=== PATIENT | male | born 1945 | race Caucasian/White ===

== ENCOUNTER 2019-01-07 04:27 | Emergency (ER) | payer MEDICARE, BC, SELFPAY ==
[2019-01-07 04:31] VITALS: BP 167/85; PULSE 57; RESP 16; TEMP 36.3; O2SAT 97
--- NOTE | 2019-01-07 04:47 | W.ED.GENAD ---
Discharge Plan Disposition Patient Disposition: HOME Condition: Stable Discharge Details Chief Complaint: Orthopedic Clinical Impression: Muscle spasm Primary Care Provider: Lynda Ventura ED Provider: Mason Singleton Home Meds and New Rx's Prescriptions: New cyclobenzaprine 10 mg tablet 10 mg PO TID PRN (Reason: muscle spasm) Qty: 30 RF: 0 No Action pramipexole 0.125 mg tablet See Rx Instructions PO as directed MDD 8 Qty: 720 RF: 4 Discharge Instructions Instructions: Muscle Spasm (ED) Additional Instructions: You can take 1000mg tylenol and 600mg ibuprofen every 6 hours for pain as needed follow up with your primary care provider within a week especially if the pain continues return to the emergency department for fevers, if you develop a red rash or feel the pain is significantly worsening Medical Decision Making 73 yo male comes in with cc of right thigh pain. He states the pain is located over the mid right thigh in the lateral portion of the thigh. He denies any recent trauma or falls. No fevers or rashes. He did cross country ski recently mud denies falling. On exam he is ambulating and has full rom of the hip and knee and intact distal sensation and pulses. No rashes, crepitus, warmth, redness to suggest nec fasc or cellulitis or abscess. He has pain in the lateral mid thigh of the right leg and does feel like he is having a muscle spasm. Given full rom and no trauma and walking without difficulty doubt fx so do not feel xrays indicated. Will start muscle relaxers, advised f/u with pcp and return precautions given Differential Diagnosis strain, muscle spasm, contusion HPI General Mode of arrival: ambulatory. Date/Time Provider Initiated Documentation: 01/07/19 04:45. Limitations to Documentation: no limitations. Information obtained by: patient. History of Present Illness 73 year old M presents to the emergency department with the chief complaint of right thigh pain, described as moderate, with intensity rated at 6. Quality is described as aching, and is localized to the right and lower extremity. Patient reports no radiation. Patient started experiencing this day(s) (1) and it has been constant. No relieving factors improve symptom(s), No exacerbating factors reported . Patient notes no other symptoms.. Patient did receive the following treatments prior to arrival, none Related Data Home Medications Medication Instructions Recorded Confirmed pramipexole 0.125 mg tablet See Rx Instructions PO as directed 10/27/18 01/07/19 #720 tab-cap MDD 8 cyclobenzaprine 10 mg PO TID PRN #30 tab 01/07/19 Previous Rx's Medication Instructions Recorded pramipexole 0.125 mg tablet See Rx Instructions PO as directed 10/27/18 #720 tab-cap MDD 8 cyclobenzaprine 10 mg PO TID PRN #30 tab 01/07/19 Allergies Allergy/AdvReac Type Severity Reaction Status Date / Time No Known Allergies Allergy Unverified 01/07/19 04:40 General Stated Complaint: Orthopedic JACQUELINE: 3 Review of Systems Review of Systems All systems reviewed & are unremarkable except as noted in HPI and below Constitutional Denies chills, Denies fever(s) and Denies weakness ENT Denies change in voice Cardiovascular Denies chest pain and Denies dyspnea Respiratory Denies cough and Denies dyspnea Gastrointestinal Denies abdominal pain, Denies nausea and Denies vomiting Musculoskeletal Denies joint swelling Neurologic Denies weakness [facility] Medical History Anxiety (Chronic 01/25/13) Balance disorder (Chronic 02/10/18) BPH without urinary obstruction (Chronic 04/12/09) Dupuytren's disease (Chronic 07/28/15) Hyperlipidemia (Chronic 01/08/00) Low back pain, non-specific (Chronic) Male erectile disorder (Chronic) 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 Father Heart disease Brother Hyperlipidemia Grandfather Heart disease Grandfather Heart disease Grandmother No problems noted. Grandmother Heart disease Sister Personal history of malignant neoplasm Parkinson disease Sister Personal history of malignant neoplasm Sister Personal history of malignant neoplasm Sister No problems noted. Sister No problems noted. Brother No problems noted. Brother No problems noted. Brother No problems noted. Brother Hyperlipidemia Social History Smoking and Tabacco status: Never Exam Const General: no acute distress Orientation: alert HENMT Head: normal to inspection Ears: external ears normal General nose exam: external nose normal Mouth: moist mucous membranes Eyes General: appearance normal, both eyes and all related structures Neck Neck: normal visual inspection Resp Effort & Inspection: normal respiratory effort and able to speak in complete sentences Cardio Rate: regular rate Skin General skin exam: no rashes or lesions noted Neuro General: alert and oriented x3 Extrem General: normal to inspection Psych Mental Status: mental status grossly normal Course Vital Signs Temperature 36.3 C L 01/07/19 04:31 Pulse 57 L 01/07/19 04:31 Respiratory Rate 16 01/07/19 04:31 Blood Pressure 167/85 H 01/07/19 04:31 Pulse Oximetry 97 01/07/19 04:31 Temperature 36.3 C L 01/07/19 04:31 Temperature Source Skin 01/07/19 04:31 Pulse 57 L 01/07/19 04:31 Respiratory Rate 16 01/07/19 04:31 Blood Pressure 167/85 H 01/07/19 04:31 Blood Pressure Position Sitting 01/07/19 04:31 Pulse Oximetry 97 01/07/19 04:31 Oxygen Delivery Method Room Air 01/07/19 04:31 Oxygen Flow Rate 0 01/07/19 04:31 Pain Level 8 01/07/19 04:31
--- NOTE | 2019-01-07 04:57 | ED.GENADUL_ITS ---
Discharge Plan Disposition Patient Disposition: HOME Condition: Stable Discharge Details Chief Complaint: Orthopedic Clinical Impression: Muscle spasm Primary Care Provider: Lynda Ventura ED Provider: Mason Singleton Home Meds and New Rx's Prescriptions: New cyclobenzaprine 10 mg tablet 10 mg PO TID PRN (Reason: muscle spasm) Qty: 30 RF: 0 No Action pramipexole 0.125 mg tablet See Rx Instructions PO as directed MDD 8 Qty: 720 RF: 4 Discharge Instructions Instructions: Muscle Spasm (ED) Additional Instructions: You can take 1000mg tylenol and 600mg ibuprofen every 6 hours for pain as needed follow up with your primary care provider within a week especially if the pain continues return to the emergency department for fevers, if you develop a red rash or feel the pain is significantly worsening Medical Decision Making 73 yo male comes in with cc of right thigh pain. He states the pain is located over the mid right thigh in the lateral portion of the thigh. He denies any recent trauma or falls. No fevers or rashes. He did cross country ski recently mud denies falling. On exam he is ambulating and has full rom of the hip and knee and intact distal sensation and pulses. No rashes, crepitus, warmth, redness to suggest nec fasc or cellulitis or abscess. He has pain in the lateral mid thigh of the right leg and does feel like he is having a muscle spasm. Given full rom and no trauma and walking without difficulty doubt fx so do not feel xrays indicated. Will start muscle relaxers, advised f/u with pcp and return precautions given Differential Diagnosis strain, muscle spasm, contusion HPI General Mode of arrival: ambulatory . Date/Time Provider Initiated Documentation: 01/07/19 04:45 . Limitations to Documentation: no limitations . Information obtained by: patient . History of Present Illness 73 year old M presents to the emergency department with the chief complaint of right thigh pain, described as moderate, with intensity rated at 6. Quality is described as aching, and is localized to the right and lower extremity. Patient reports no radiation. Patient started experiencing this day(s) (1) and it has been constant. No relieving factors improve symptom(s), No exacerbating factors reported . Patient notes no other symptoms.. Patient did receive the following treatments prior to arrival, none Related Data Home Medications Medication Instructions Recorded Confirmed pramipexole 0.125 mg tablet See Rx Instructions PO as directed 10/27/18 01/07/19 #720 tab-cap MDD 8 cyclobenzaprine 10 mg PO TID PRN #30 tab 01/07/19 Previous Rx's Medication Instructions Recorded pramipexole 0.125 mg tablet See Rx Instructions PO as directed 10/27/18 #720 tab-cap MDD 8 cyclobenzaprine 10 mg PO TID PRN #30 tab 01/07/19 Allergies Allergy/AdvReac Type Severity Reaction Status Date / Time No Known Allergies Allergy Unverified 01/07/19 04:40 General Stated Complaint: Orthopedic JACQUELINE: 3 Review of Systems Review of Systems All systems reviewed & are unremarkable except as noted in HPI and below Constitutional Denies chills, Denies fever(s) and Denies weakness ENT Denies change in voice Cardiovascular Denies chest pain and Denies dyspnea Respiratory Denies cough and Denies dyspnea Gastrointestinal Denies abdominal pain, Denies nausea and Denies vomiting Musculoskeletal Denies joint swelling Neurologic Denies weakness [facility] Medical History Anxiety (Chronic 01/25/13) Balance disorder (Chronic 02/10/18) BPH without urinary obstruction (Chronic 04/12/09) Dupuytren's disease (Chronic 07/28/15) Hyperlipidemia (Chronic 01/08/00) Low back pain, non-specific (Chronic) Male erectile disorder (Chronic) 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 Father Heart disease Brother Hyperlipidemia Grandfather Heart disease Grandfather Heart disease Grandmother No problems noted. Grandmother Heart disease Sister Personal history of malignant neoplasm Parkinson disease Sister Personal history of malignant neoplasm Sister Personal history of malignant neoplasm Sister No problems noted. Sister No problems noted. Brother No problems noted. Brother No problems noted. Brother No problems noted. Brother Hyperlipidemia Social History Smoking and Tabacco status: Never Exam Const General: no acute distress Orientation: alert HENMT Head: normal to inspection Ears: external ears normal General nose exam: external nose normal Mouth: moist mucous membranes Eyes General: appearance normal, both eyes and all related structures Neck Neck: normal visual inspection Resp Effort & Inspection: normal respiratory effort and able to speak in complete sentences Cardio Rate: regular rate Skin General skin exam: no rashes or lesions noted Neuro General: alert and oriented x3 Extrem General: normal to inspection Psych Mental Status: mental status grossly normal Course Vital Signs Temperature 36.3 C L 01/07/19 04:31 Pulse 57 L 01/07/19 04:31 Respiratory Rate 16 01/07/19 04:31 Blood Pressure 167/85 H 01/07/19 04:31 Pulse Oximetry 97 01/07/19 04:31 Temperature 36.3 C L 01/07/19 04:31 Temperature Source Skin 01/07/19 04:31 Pulse 57 L 01/07/19 04:31 Respiratory Rate 16 01/07/19 04:31 Blood Pressure 167/85 H 01/07/19 04:31 Blood Pressure Position Sitting 01/07/19 04:31 Pulse Oximetry 97 01/07/19 04:31 Oxygen Delivery Method Room Air 01/07/19 04:31 Oxygen Flow Rate 0 01/07/19 04:31 Pain Level 8 01/07/19 04:31
[2019-01-07] MEDS: Cyclobenzaprine 10 MG TAB PO (04:58)
== END 2019-01-07 05:00 | disposition home or self-care (01) ==
PROVIDERS: Emergency Provider Emergency Medicine; PCP Family Medicine
DX: M62.838 Other muscle spasm (principal); X50.3XXA Overexertion from repetitive movements, initial encounter
CPT/HCPCS: 99283

== ENCOUNTER 2019-01-20 09:35 | Outpatient (CLI) | payer MEDICARE, BC, SELFPAY ==
--- NOTE | 2019-01-20 09:40 | DI.RAD_ITS ---
SYMPTOM/DIAGNOSIS: RT HIP PAIN, M25.551 RIGHT HIP AND PELVIS: There are mild degenerative changes involving the right hip. The bony structures are normally mineralized. There is no evidence of a fracture or dislocation. Evaluation of the pelvis reveals osteitis pubis. Allowing for overlying bowel gas and fecal material, no localized bony abnormality is apparent. 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
== END 2019-01-20 09:55 ==
PROVIDERS: PCP Family Medicine; Visit Provider Emergency Medicine
DX: M25.551 Pain in right hip (principal); M16.11 Unilateral primary osteoarthritis, right hip
CPT/HCPCS: 73502

== ENCOUNTER 2019-08-23 00:58 | Outpatient (CLI) | payer MEDICARE, BC, SELFPAY ==
[2019-08-23 14:39] LABS: CREATININE 0.87 mg/dL (0.70-1.30)
[2019-08-23] MEDS: Normal Saline Flush 10 ML SYR IVP (15:29)
[2019-08-23] MEDS: Gadoterate meglumine 20 ML VIAL 16 ML IVP (15:30)
--- NOTE | 2019-08-23 17:05 | DI.MRI_ITS ---
EXAM: MR UPPER EXTREMITY LT WO/W CLINICAL HISTORY: Osteomyelitis, M86.9, ? osteomyelitis of 5th left finger. TECHNIQUE: Multiplanar multisequence MRI was performed. COMPARISON: No exams were available for comparison FINDINGS: Examination of the hand was performed according to the usual protocol with additional pre and post co ntrast T1 fat sat imaging. There is reportedly a question of osteomyelitis of the 5th finger. The e xamination is very limited technically. Question increased signal in proximal and middle phalanges o f the little finger, bony cortex of the head of the proximal and middle phalanges is not well visuali zed but this may be due to artifact. Correlation with radiographs or CT requested to evaluate the po ssibility of a destructive process. IMPRESSION:
== END 2019-08-23 01:18 ==
PROVIDERS: PCP Family Medicine; Visit Provider Family Medicine
DX: L08.89 Other specified local infections of the skin and subcutaneous tissue (principal); M86.141 Other acute osteomyelitis, right hand
CPT/HCPCS: 73220; 82565

== ENCOUNTER 2019-08-26 10:35 | Outpatient (CLI) | payer MEDICARE, BC, SELFPAY ==
[2019-08-26 10:01] LABS: Absolute Basophil Count 0.02 k/cumm (0.0-0.2); Absolute Eosinophil Count 0.11 k/cumm (0.0-0.7); Absolute Lymphocyte Count 1.09 k/cumm (1.2-3.4); Absolute Monocyte Count 0.45 k/cumm (0.11-0.7); Absolute Neutrophil Count 2.35 k/cumm (1.2-6.7); Basophils % 0.5; Eosinophils % 2.7; HCT 44.4 % (40.0-50.0); HGB 14.8 g/dL (13.5-17.5); Lymphocytes % 27.1; Mean Corp. HGB Concentration 33.3 g/dL (32.0-36.0); Mean Corpuscular Hemoglobin 29.8 pg (27.0-33.0); Mean Corpuscular Volume 89.5 fL (80-95); Mean Platelet Volume 9.8 fL (8.0-11.0); Monocytes % 11.2; Neutrophils % 58.5; Platelet Count 210 x1000/uL (130-400); RBC 4.96 m/cumm (4.50-6.00); RBC Distribution Width 13.8 % (11.8-14.1); White Blood Cell Count 4.02 k/cumm (4.4-10.8)
[2019-08-26 10:37] LABS: C-Reactive Protein 0.12 mg/dL (0.0-0.3)
[2019-08-26 11:18] LABS: ESR 9 mm/hr (1-20)
== END 2019-08-26 10:55 ==
PROVIDERS: PCP Family Medicine; Visit Provider Family Medicine
DX: L03.012 Cellulitis of left finger (principal)
CPT/HCPCS: 36415; 85652; 85025; 86140

== ENCOUNTER 2020-04-10 09:05 | Inpatient (IN) | payer MEDICARE, BC, SELFPAY ==
[2020-04-10] VITALS (21 sets, daily range): BP systolic 135–166; BP diastolic 72–92; PULSE 42–67; RESP 11–20; TEMP 36.3–37.5; O2SAT 96–100
--- NOTE | 2020-04-10 09:07 | W.ED.GENAD ---
Discharge Plan Discharge Details Chief Complaint: GenMedical Admit Date/Time: 04/10/20 12:24 Admit Provider: Wood Sanford Attending Provider: Wood Sanford Primary Care Provider: Lynda Ventura ED Provider: Angela Saleh Medical Decision Making Nitin Butt is a 74-year-old man with history of parkinsonian disease, hyperlipidemia, restless leg syndrome who presents emergency department with intermittent severe generalized weakness new over the past few days; patient also with new sharp chest pain with exertion over the past few days. On exam patient is well and nontoxic-appearing. Nonfocal neurologic exam, able to walk unassisted. Concern for sequelae of Parkinson's disease versus metabolic/lyte derangement versus infection versus other, possible ACS. Doubt pulmonary embolism. Exam/history is not consistent with sepsis, acute aortic process, meningitis. Plan for EKG, screening labs, CT head, chest x-ray, telemetry. Will monitor and reassess. I did discuss patient presentation with Dr. Rodriguez of neurology, who recommended no further imaging or acute diagnostics at this time. Labs reviewed, nondiagnostic. CT had negative per radiology. EKG nondiagnostic. Given new severe weakness, plan for admission for further evaluation. Patient and his are amenable to the plan. Patient's does note that he has been having significant tremor at night while asleep, and a sleep study had been scheduled in the past but has not been performed. She asked that patient be observed intermittently while sleeping while sleeping. Clinical impression: Intermittent generalized weakness Disposition: [facility] inpatient Medical Records Medical records reviewed: Yes I reviewed the patient's medical records. Imaging Data Radiologic Study: Attestation: I personally reviewed and interpreted this imaging study as follows: Radiologist's impression: EXAM: CT HEAD WO CLINICAL HISTORY: generalized weakness, severe TECHNIQUE: COMPARISON: No exams were available for comparison FINDINGS: Noncontrast cranial CT was performed. There is mild generalized cerebral atrophy. Minimal patchy areas of decreased attenuation in periventricular white matter are noted consistent with microvascular ischemic changes. There is no evidence of acute intracranial hemorrhage, mass effect, or midline shift. IMPRESSION: No evidence of acute intracranial process. EXAM: XR CHEST 2V PA LATERAL CLINICAL HISTORY: chest pain TECHNIQUE: 2D digital imaging was performed. COMPARISON: No exams were available for comparison FINDINGS: The heart is not enlarged. The lungs are clear and well expanded. No pleural effusion seen. Mediastinal contours appear intact. IMPRESSION: Normal chest Lab Data Lab results reviewed: Yes I reviewed the patient's lab results. Labs: Laboratory Tests Range/Units 04/10/20 04/10/20 04/10/20 10:00 10:15 10:15 WBC (4.4-10.8) k/cumm 4.22 L RBC (4.50-6.00) m/cumm 5.23 Hgb (13.5-17.5) g/dL 15.4 Hct (40.0-50.0) % 46.1 MCV (80-95) fL 88.1 MCH (27.0-33.0) pg 29.4 MCHC (32.0-36.0) g/dL 33.4 RDW (11.8-14.1) % 13.5 Plt Count (130-400) x1000/uL 219 MPV (8.0-11.0) fL 9.5 Immature Gran % % 0.2 Neutrophils % 63.5 Lymphocytes % 23.0 Monocytes % 9.7 Eosinophils % 3.1 Basophils % 0.5 Absolute Neutrophils (1.2-6.7) k/cumm 2.68 Absolute Lymphocytes (1.2-3.4) k/cumm 0.97 L Absolute Monocytes (0.11-0.7) k/cumm 0.41 Absolute Eosinophils (0.0-0.7) k/cumm 0.13 Absolute Basophils (0.0-0.2) k/cumm 0.02 D-Dimer (<500) ng/mlFEU Sodium (136-145) mmol/L 139 Potassium (3.5-5.1) mmol/L 3.8 Chloride (98-107) mmol/L 104 Carbon Dioxide (21.0-32.0) mmol/L 28.5 Anion Gap (3-11) mmol/L 6.5 BUN (7-18) mg/dL 17 Creatinine (0.70-1.30) mg/dL 0.84 Estimated GFR/1.73 m2 (mL/min/1.73m2) >= 60.00 Glucose (74-106) mg/dL 133 H Lactate (0.6-1.4) mmol/L Calcium (8.5-10.1) mg/dL 9.0 Total Bilirubin (0.2-1.0) mg/dL 0.3 AST (15-37) U/L 16 ALT (16-63) U/L 33 Alkaline Phosphatase (46-116) U/L 72 Troponin I (<0.06) ng/mL Total Protein (6.4-8.2) g/dL 7.8 Albumin (3.4-5.0) g/dL 4.0 Vitamin B12 (193-986) pg/mL 339 TSH (0.36-3.74) uIU/mL 1.00 Urine Color (Yellow) Yellow Urine Clarity (Clear) Clear Urine pH (5-8) 7.0 Ur Specific [place] (1.005-1.025) 1.020 Urine Protein (Negative) mg/dL Negative Urine Ketones (Negative) mg/dL Negative Urine Blood (Negative) Negative Urine Nitrite (Negative) Negative Urine Bilirubin (Negative) Negative Urine Urobilinogen (Up TO 0.2) EU/dL 0.2 Ur Leukocyte Esterase (Negative) Negative Urine Glucose (Negative) mg/dL Negative Range/Units 04/10/20 04/10/20 04/10/20 10:15 10:15 13:10 WBC (4.4-10.8) k/cumm RBC (4.50-6.00) m/cumm Hgb (13.5-17.5) g/dL Hct (40.0-50.0) % MCV (80-95) fL MCH (27.0-33.0) pg MCHC (32.0-36.0) g/dL RDW (11.8-14.1) % Plt Count (130-400) x1000/uL MPV (8.0-11.0) fL Immature Gran % % Neutrophils % Lymphocytes % Monocytes % Eosinophils % Basophils % Absolute Neutrophils (1.2-6.7) k/cumm Absolute Lymphocytes (1.2-3.4) k/cumm Absolute Monocytes (0.11-0.7) k/cumm Absolute Eosinophils (0.0-0.7) k/cumm Absolute Basophils (0.0-0.2) k/cumm D-Dimer (<500) ng/mlFEU 369 Sodium (136-145) mmol/L Potassium (3.5-5.1) mmol/L Chloride (98-107) mmol/L Carbon Dioxide (21.0-32.0) mmol/L Anion Gap (3-11) mmol/L BUN (7-18) mg/dL Creatinine (0.70-1.30) mg/dL Estimated GFR/1.73 m2 (mL/min/1.73m2) Glucose (74-106) mg/dL Lactate (0.6-1.4) mmol/L 0.6 Calcium (8.5-10.1) mg/dL Total Bilirubin (0.2-1.0) mg/dL AST (15-37) U/L ALT (16-63) U/L Alkaline Phosphatase (46-116) U/L Troponin I (<0.06) ng/mL < 0.05 Total Protein (6.4-8.2) g/dL Albumin (3.4-5.0) g/dL Vitamin B12 (193-986) pg/mL TSH (0.36-3.74) uIU/mL Urine Color (Yellow) Urine Clarity (Clear) Urine pH (5-8) Ur Specific [place] (1.005-1.025) Urine Protein (Negative) mg/dL Urine Ketones (Negative) mg/dL Urine Blood (Negative) Urine Nitrite (Negative) Urine Bilirubin (Negative) Urine Urobilinogen (Up TO 0.2) EU/dL Ur Leukocyte Esterase (Negative) Urine Glucose (Negative) mg/dL ECG Data Attestation: I personally reviewed and interpreted this ECG (s) as follows: Interpretation: EKG shows sinus bradycardia at 52, normal axis, no STEMI, nondiagnostic EKG Reviewed EKG shows sinus bradycardia at 51 with normal axis, no STEMI, no major change from prior, nondiagnostic EKG HPI General Mode of arrival: ambulatory. Date/Time Provider Initiated Documentation: 04/10/20 09:07. Limitations to Documentation: no limitations. Information obtained by: patient, family, RN/MD, RN notes reviewed and old records reviewed. HPI Narrative: Nitin Butt is a 74-year-old man with history of parkinsonian disease, hyperlipidemia, restless leg with weakness and chest pain. Patient is accompanied by his who also provides a history. I was also contacted by Dr. Hickman who knows the patient personally, and by Dr. Ventura who is the patient's PCP. Patient was diagnosed with parkinsonian disease approximately 3 years ago, parkinsonian in that his course has been atypical without tremor. Per report and record review, patient was seen here in the past by Dr. Rodriguez and is currently followed by neurology at [facility] [place]. To date patient has not been interested in medications for his Parkinson's disease and currently does not take any. Patient and his report that over the past few months patient has felt weaker in general, however there has been an acute change in the past 5 days or so. They report that patient has had significant generalized weakness at times, to the point where he is unable to get out of a chair or get out of bed. Patient reports that last night he was unable to get out of bed which has never happened to him before. Patient reports that his speech/voice also seems weak during these times. Patient reports that the weakness has seemed somewhat worse for the end of the day, but this has not been consistent. Patient reports in the past few days he has also noticed chest pain with exertion. 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 He reports that this is relieved by rest. Patient reports that he has had no chest pain while at rest. He reports some mild shortness of breath that has not bothered him during the past few days as well. He denies any other pain or any other recent illness. He denies fevers, cough, vomiting, diarrhea, rash, focal weakness, numbness, vision changes, eyelid drooping, trouble swallowing. Patient reports that he has been eating and drinking as usual. He states that he drinks 1 beer a day on some days. Denies tobacco use, denies recreational drug use. Related Data Home Medications Medication Instructions Recorded Confirmed cyclobenzaprine 10 mg PO TID PRN #30 tab 01/07/19 04/10/20 adjuvant AS01B (PF)vial 1 of 2 1 ml IM ONCE #0.5 ml 04/20/19 10/19/19 lorazepam 1 mg tablet 1 mg PO DAILY PRN #2 tab 08/11/19 04/10/20 pramipexole 0.125 mg tablet See Rx Instructions PO as directed 11/15/19 04/10/20 #630 tab-cap Previous Rx's Medication Instructions Recorded cyclobenzaprine 10 mg PO TID PRN #30 tab 01/07/19 adjuvant AS01B (PF)vial 1 of 2 1 ml IM ONCE #0.5 ml 04/20/19 lorazepam 1 mg tablet 1 mg PO DAILY PRN #2 tab 08/11/19 pramipexole 0.125 mg tablet See Rx Instructions PO as directed 11/15/19 #630 tab-cap Allergies Allergy/AdvReac Type Severity Reaction Status Date / Time No Known Allergies Allergy Unverified 04/10/20 09:17 General JACQUELINE: 3 Review of Systems Narrative: Constitutional: denies fevers Eyes: denies eye pain, eyelid drooping, vision changes ENT: denies ear pain, dental pain, sore throat Cardiovascular: denies edema, reports shortness of breath with exertion Respiratory: denies cough, reports mild shortness of breath GI: denies abdominal pain, vomiting, diarrhea : denies flank pain MSK: denies back pain, neck pain, arthralgias, myalgias Skin: denies rash Neuro: denies headaches, numbness, focal weakness, reports intermittent generalized weakness [facility] Medical History Anxiety (Chronic 01/25/13) 12/26/17 TERESITA-7 SCORE=13 Balance disorder (Chronic 02/10/18) BPH without urinary obstruction (Chronic 04/12/09) Dupuytren's disease (Chronic 07/28/15) Hyperlipidemia (Chronic 01/08/00) Low back pain, non-specific (Chronic) S/P BACK SURGERY 1997 Male erectile disorder (Chronic) Metatarsalgia of left foot (Chronic 07/28/15) Panic attack (Chronic 01/25/13) Partial rupture of Achilles tendon (Chronic 07/15/17) Pterygium (Chronic 04/12/09) REMOVED W/ BILATERAL EYE SURGERY Restless legs (Chronic 04/12/09) Sensorineural hearing loss, bilateral (Chronic 12/14/15) Sleep disturbance (Chronic 03/12/18) Trigger finger, left middle finger (Chronic 07/28/15) Social History Smoking/Tobacco Use Status: Never Alcohol Intake: current Alcohol Intake frequency: 3 or more drinks per day Alcohol type: beer Drug use: Never Substance use type: does not use Do you feel safe at home: Yes Do you feel safe in your relationship?: Yes Exam Narrative Exam Narrative: Constitutional: well and [id number], pleasant, conversing normally HENT: head atraumatic/normocephalic/normal inspection, mucous membranes moist Eyes: conjunctiva normal, sclera normal, pupils 3mm b/l ERRL, extraocular movements intact without nystagmus Neck: no stridor, normal ROM, trachea midline Chest: normal inspection Resp: normal work of breathing Cardio: normal rate, normal rhythm Back: normal inspection, no rash Skin: warm, dry, normal color, no rash Neuro: alert, not altered, cranial nerves II through XII intact, motor 5 out of 5 throughout, [id number] normal bilaterally, [id number] normal bilaterally, no pronator drift, negative Romberg sign, patient with somewhat shuffling gait but able to walk without assistance, mild difficulty with tandem gait, normal tone Ext: no edema Psych: normal mood, normal affect, normal behavior
[2020-04-10 10:36] LABS: Abs Immature Grans 0.01 k/cumm (0.0-0.09); Absolute Basophil Count 0.02 k/cumm (0.0-0.2); Absolute Eosinophil Count 0.13 k/cumm (0.0-0.7); Absolute Lymphocyte Count 0.97 k/cumm (1.2-3.4); Absolute Monocyte Count 0.41 k/cumm (0.11-0.7); Absolute Neutrophil Count 2.68 k/cumm (1.2-6.7); Basophils % 0.5; Eosinophils % 3.1; HCT 46.1 % (40.0-50.0); HGB 15.4 g/dL (13.5-17.5); Immature Grans % 0.2 %; Mean Corp. HGB Concentration 33.4 g/dL (32.0-36.0); Mean Corpuscular Hemoglobin 29.4 pg (27.0-33.0); Mean Corpuscular Volume 88.1 fL (80-95); Mean Platelet Volume 9.5 fL (8.0-11.0); Monocytes % 9.7; Neutrophils % 63.5; Platelet Count 219 x1000/uL (130-400); RBC 5.23 m/cumm (4.50-6.00); RBC Distribution Width 13.5 % (11.8-14.1); White Blood Cell Count 4.22 k/cumm (4.4-10.8)
[2020-04-10 10:39] LABS: Bilirubin Negative (Negative); Blood Negative (Negative); Clarity Clear (Clear); Glucose Negative (Negative); Ketones Negative (Negative); Leukocyte Esterase Negative (Negative); Nitrite Negative (Negative); Urobilinogen 0.2 EU/dL (Up TO 0.2)
[2020-04-10 10:55] LABS: ALT 33 U/L (16-63); AST 16 U/L (15-37); Alkaline Phosphatase 72 U/L (46-116); Anion Gap 6.5 mmol/L (3-11); BUN 17 mg/dL (7-18); Bilirubin, Total 0.3 mg/dL (0.2-1.0); CO2 28.5 mmol/L (21.0-32.0); CREATININE 0.84 mg/dL (0.70-1.30); Chloride 104 mmol/L (98-107); Glucose 133 mg/dL (74-106); Potassium 3.8 mmol/L (3.5-5.1); Sodium 139 mmol/L (136-145); Total Protein 7.8 g/dL (6.4-8.2)
--- NOTE | 2020-04-10 10:59 | DI.CT_ITS ---
EXAM: CT HEAD WO CLINICAL HISTORY: generalized weakness, severe TECHNIQUE: COMPARISON: No exams were available for comparison FINDINGS: Noncontrast cranial CT was performed. There is mild generalized cerebral atrophy. Minimal patchy ar eas of decreased attenuation in periventricular white matter are noted consistent with microvascular ischemic changes. There is no evidence of acute intracranial hemorrhage, mass effect, or midline chrissy ft. IMPRESSION: No evidence of acute intracranial process.
[2020-04-10 11:09] LABS: Troponin I < 0.05 ng/mL (<0.06)
[2020-04-10 11:32] LABS: Vitamin B12 339 pg/mL (193-986)
[2020-04-10 11:44] LABS: D-Dimer 369 ng/mlFEU (<500)
--- NOTE | 2020-04-10 12:00 | DI.RAD_ITS ---
EXAM: XR CHEST 2V PA LATERAL CLINICAL HISTORY: chest pain TECHNIQUE: 2D digital imaging was performed. COMPARISON: No exams were available for comparison FINDINGS: The heart is not enlarged. The lungs are clear and well expanded. No pleural effusion seen. Mediastin al contours appear intact. IMPRESSION: Normal chest
[2020-04-10 13:16] LABS: Lactate 0.6 mmol/L (0.6-1.4)
[2020-04-10 13:38] LABS: Troponin I < 0.05 ng/mL (<0.06)
--- NOTE | 2020-04-10 14:38 | HPE_ITS ---
Date of service: 04/10/20 Time of Service: 14:38 Assessment and Plan Assessment and plan (1) Chest pain: Status: Acute Assessment and plan: will get stress MPI tomorrow and if negative then he can be discharged for follow up w/ his PCP Qualifiers: Chest pain type: unspecified Qualified Code(s): R07.9 - Chest pain, unspecified (2) Parkinsonism: Status: Acute Assessment and plan: His symptoms do not necessitate admission for workup of his Parkinsonism. He has RLS and takes Mirapex for this. Per Dr. Rodriguez he was exhibiting myoclonic jerks throughout her exam of the patient. However, he did not exhibit this during my exam. However he has known RLS but has not had a formal diagnosis of Parkinson's disease. He does exhibit a slow rather rigid gait that is not fluid, i.e. no arm swing with his gait swings. Dr. Rodriguez is discussing [place] [facility] [place] medication for his myoclonic jerking. 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 Patient tells me that he is usually very physically active often running up and down his hill for 75 yards and doing a set of 10 sit ups and push-ups when he gets about a hill and then doing the same when he gets to the top of the hill and will do up to 10 repetitions at a time. He says he usually runs 4 to 5 miles daily and cross-cou ntry skis in the winter and bicycles between 10 to 30 miles in the summer. However for last 2 weeks he has had fatigue and lightheadedness along with exertional dyspnea and chest tightness in the substernal area without radiation. He also says he has had generalized weakness and fatigue. He denies any tremors and denies any loss of consciousness or headaches or paresthesias or paraparesis. He admits to having insomnia but this is been a chronic issue for him. He has trouble remaining asleep and usually gets to 3 hours asleep at a time. Over the last couple weeks he has noticed that he gets a substernal chest tightness that gets worse with activity and better at rest. This is associated with exertional dyspnea. Yesterday was only able to run a half a mile but got symptoms and shorten his run. He reports that last night he was feeling really dizzy and his was concerned that he might fall down because he does get up during the night and so she moved him downstairs for the night. At his neighbor's urging his brought him to the emergency department for evaluation. In the ER he had routine labs including a CMP CBC and troponin levels as well as a blood lactate level. CMP was unremarkable except for glucose of 133 which was nonfasting. Lactate was normal at 0.6. Troponin I level was less than 0.05?2 sets. CBC demonstrated a slightly decreased total leukocyte count of 4220 with no anemia and no thrombocytopenia. Lymphocytes were slightly decreased to 0.97. COVID-19 PCR was obtained in the emergency department as part of routine screening. Urinalysis was unremarkable. Imaging included a chest x-ray and CT scan of the head without contrast. Chest x-ray was read as normal. CT scan showed no acute intracranial process. He has mild generalized cerebral atrophy and minimal patchy areas of decreased attenuation in the periventricular white matter consistent with microvascular ischemic change. 2 EKGs were performed in the emergency department the first 1 taken at 928 this morning showed sinus bradycardia rate of 52 bpm with a nonspecific RSR prime pattern in the anterior leads. No ischemic ST or T wave changes were noted and no AV block was noted. Repeat ECG performed at 1314 again showed sinus bradycardia rate of 51 bpm with no new changes. Admission was recommended by Dr. Angela Saleh for evaluation of generalized weakness possible exacerbation of parkinsonism. However upon my examination and history I feel that the primary concern here is is new onset exertional dyspnea and chest discomfort. Review of Systems Constitutional Constitutional: Denies excessive sweating, Reports fatigue and Denies frequent falls Eyes Eyes: Reports blurry vision (Left eye which gets worse when he is tired) and Denies loss of vision ENT Ears, Nose, Mouth, and Throat: Reports system reviewed and no additional complaints, except as documented, Denies vertigo, Reports dizziness, Reports hearing loss (Decreased acuity) and Reports disequilibrium Cardiovascular Cardiovascular: Reports as per HPI, Denies syncope and Denies palpitations Respiratory Respiratory: Reports as per HPI Gastrointestinal Gastrointestinal: Reports system reviewed and no additional complaints, except as documented Genitourinary Genitourinary: Reports system reviewed and no additional complaints, except as documented Musculoskeletal Musculoskeletal: Reports system reviewed and no additional complaints, except as documented and Denies abnormal gait Integumentary/Breasts Skin/Breast: Reports system reviewed and no additional complaints, except as documented Neurologic Neurologic: Denies abnormal movements, Denies abnormal speech, Denies abnormal gait, Denies behavioral changes, Denies vertigo, Reports dizziness, Denies syncope, Denies frequent falls, Denies lack of coordination, Denies localized weakness, Denies loss of vision, Reports restless legs, Denies paresthesias and Reports disequilibrium Psychiatric Psychiatric: Reports abnormal sleep pattern (Difficulty in maintaining sleep) and Denies behavioral changes Endocrine Endocrine: Denies cold intolerance, Denies excessive sweating, Reports fatigue, Denies heat intolerance, Denies polyphagia, Denies polydipsia and Denies palpitations Hematologic/Lymphatic Hematologic/Lymphatic: Reports easy bruising Allergic/Immunologic Allergic/Immunologic: Reports system reviewed and no additional complaints, except as documented [facility] Medical History Anxiety (Chronic 01/25/13) 12/26/17 TERESITA-7 SCORE=13 Balance disorder (Chronic 02/10/18) BPH without urinary obstruction (Chronic 04/12/09) Dupuytren's disease (Chronic 07/28/15) Hyperlipidemia (Chronic 01/08/00) Low back pain, non-specific (Chronic) S/P BACK SURGERY 1997 Male erectile disorder (Chronic) Metatarsalgia of left foot (Chronic 07/28/15) Panic attack (Chronic 01/25/13) Partial rupture of Achilles tendon (Chronic 07/15/17) Pterygium (Chronic 04/12/09) REMOVED W/ BILATERAL EYE SURGERY Restless legs (Chronic 04/12/09) Sensorineural hearing loss, bilateral (Chronic 12/14/15) Sleep disturbance (Chronic 03/12/18) Trigger finger, left middle finger (Chronic 07/28/15) Social History Smoking/Tobacco Use Status: Never Alcohol Intake: current Alcohol Intake frequency: 3 or more drinks per day Alcohol type: beer Drug use: Never Substance use type: does not use Do you feel safe at home: Yes Do you feel safe in your relationship?: Yes Meds Home Medications and Allergies Home Medications Medication Instructions Recorded Confirmed Type cyclobenzaprine 10 mg PO TID PRN #30 tab 01/07/19 04/10/20 Rx adjuvant AS01B (PF)vial 1 of 2 1 ml IM ONCE #0.5 ml 04/20/19 10/19/19 Rx lorazepam 1 mg tablet 1 mg PO DAILY PRN #2 tab 08/11/19 04/10/20 Rx pramipexole 0.125 mg tablet See Rx Instructions PO as directed 11/15/19 04/10/20 Rx #630 tab-cap Allergies Allergy/AdvReac Type Severity Reaction Status Date / Time No Known Allergies Allergy Unverified 04/10/20 09:17 Exam Narrative Exam Narrative: Elderly gentleman who appears younger than his stated age of 74 who is alert and oriented person place time circumstance. HEENT is unremarkable. He has no facial asymmetry no dysarthric speech. Full extraocular motion intact. Pupils equally round reactive to light and accommodation. No scleral icterus. Oropharynx noninjected. Normal facial mimetic muscle movement. Normal movement of his tongue and his palate. Neck supple nontender no JVD normal carotid pulses no thyromegaly no cervical lymphadenopathy. Lungs clear to auscultation. Heart is bradycardic with no S3 or S4 gallop. Abdomen is soft and nontender no organomegaly no palpable masses no bruits. Lower extremities without peripheral cyanosis or edema. He has normal pedal pulses. Neurologic exam he is alert and oriented person place time circumstance no facial asymmetry no dysarthric speech no abnormal facial mimetic muscle movement. Strength and range of motion is normal in both upper and lower extremities. Sensation intact light touch. There is no cogwheel rigidity. I walked the patient on his tip toes and on his heels and he had no loss of balance. I ambulated him around the nursing station and he walked at a brisk pace w/out any loss of balance nor any hesitation in either starting his gait nor in stopping his gait. He did not have any festinating gait but walked at a slow pace in a shuffling gait. I watched him while he stood up and sat down several times without use of his arms and he did this without loss of balance. Results Labs Result diagrams: 04/10/20 10:15 04/10/20 10:15 Labs: Laboratory Results - last 24 hr 04/10/20 04/10/20 04/10/20 10:00 10:15 10:15 WBC 4.22 L RBC 5.23 Hgb 15.4 Hct 46.1 MCV 88.1 MCH 29.4 MCHC 33.4 RDW 13.5 Plt Count 219 MPV 9.5 Immature Gran % 0.2 Neutrophils % 63.5 Lymphocytes % 23.0 Monocytes % 9.7 Eosinophils % 3.1 Basophils % 0.5 Absolute Neutrophils 2.68 Absolute Lymphocytes 0.97 L Absolute Monocytes 0.41 Absolute Eosinophils 0.13 Absolute Basophils 0.02 D-Dimer Sodium 139 Potassium 3.8 Chloride 104 Carbon Dioxide 28.5 Anion Gap 6.5 BUN 17 Creatinine 0.84 Estimated GFR/1.73 m2 >= 60.00 Glucose 133 H Lactate Calcium 9.0 Total Bilirubin 0.3 AST 16 ALT 33 Alkaline Phosphatase 72 Troponin I Total Protein 7.8 Albumin 4.0 Vitamin B12 339 TSH 1.00 Urine Color Yellow Urine Clarity Clear Urine pH 7.0 Ur Specific [place] 1.020 Urine Protein Negative Urine Ketones Negative Urine Blood Negative Urine Nitrite Negative Urine Bilirubin Negative Urine Urobilinogen 0.2 Ur Leukocyte Esterase Negative Urine Glucose Negative 04/10/20 04/10/20 04/10/20 10:15 10:15 13:10 WBC RBC Hgb Hct MCV MCH MCHC RDW Plt Count MPV Immature Gran % Neutrophils % Lymphocytes % Monocytes % Eosinophils % Basophils % Absolute Neutrophils Absolute Lymphocytes Absolute Monocytes Absolute Eosinophils Absolute Basophils D-Dimer 369 Sodium Potassium Chloride Carbon Dioxide Anion Gap BUN Creatinine Estimated GFR/1.73 m2 Glucose Lactate 0.6 Calcium Total Bilirubin AST ALT Alkaline Phosphatase Troponin I < 0.05 Total Protein Albumin Vitamin B12 TSH Urine Color Urine Clarity Urine pH Ur Specific [place] Urine Protein Urine Ketones Urine Blood Urine Nitrite Urine Bilirubin Urine Urobilinogen Ur Leukocyte Esterase Urine Glucose 04/10/20 13:10 WBC RBC Hgb Hct MCV MCH MCHC RDW Plt Count MPV Immature Gran % Neutrophils % Lymphocytes % Monocytes % Eosinophils % Basophils % Absolute Neutrophils Absolute Lymphocytes Absolute Monocytes Absolute Eosinophils Absolute Basophils D-Dimer Sodium Potassium Chloride Carbon Dioxide Anion Gap BUN Creatinine Estimated GFR/1.73 m2 Glucose Lactate Calcium Total Bilirubin AST ALT Alkaline Phosphatase Troponin I < 0.05 Total Protein Albumin Vitamin B12 TSH Urine Color Urine Clarity Urine pH Ur Specific [place] Urine Protein Urine Ketones Urine Blood Urine Nitrite Urine Bilirubin Urine Urobilinogen Ur Leukocyte Esterase Urine Glucose Last Vital Signs Temp 36.5 C 04/10/20 13:35 Pulse 54 L 04/10/20 13:35 Resp 16 04/10/20 13:35 BP 166/92 H 04/10/20 13:35 Pulse Ox 100 04/10/20 13:35 COVID-19 Screening In the past 14 days, have you traveled outside of [place] or [place]?: NO Had IN PERSON contact w/suspected or confirmed C-19 person: No
--- NOTE | 2020-04-10 15:30 | NCONE_ITS ---
Date of service: 04/10/20 Time of Service: 15:31 Assessment and Plan Assessment and plan (1) Parkinsonism: Status: Acute Qualifiers: Parkinsonism type: unspecified Qualified Code(s): G20 - Parkinson's disease (2) Restless legs: Status: Chronic (3) Myoclonic jerking: Status: Acute (4) Generalized weakness: Status: Acute Assessment and plan: Mr. Butt is a 74-year-old, right-handed man with a past medical history of atypical Parkinsonism who presents with several months of generalized weakness, episodic per report, but worse in the last week with difficulty getting out of chairs and out of bed. Additionally, he has had increased RLS symptoms as well as a new finding of right leg myoclonic jerking on exam. It is possible the right leg myoclonus is part of his restless leg paradigm. The myoclonus could be part of the atypical Parkinsonism or secondary to dopaminergic medication effects. The generalized weakness sounds like bradykinesia to me. I discussed his findings with his primary neurologist Dr. Bright. After discussion, we opted to increase pramipexole to 2 tablets in the morning along with 4 tablets in the afternoon and evening (0.125mg tabs; from 1-3-3). This should help with both bradykinesia and restless leg symptoms. If he continues to have the myoclonus, we can consider levetiracetam versus an anticholinergic, which could possibly have cognitive side effects. Otherwise, I discussed with him the importance of the previously recommended sleep study. He will think about this. We may want order it here locally. I also discussed follow-up locally along with [facility] follow-up so that he has closer monitoring. I will see how he is doing tomorrow. Please call with any further questions or concerns. History of Present Illness History of Present Illness Chief Complaint: weakness Narrative: Handedness: right. HPI: Mr. Butt is a 74 year-old man with a PMHx of atypical parkinsonism, restless leg syndrome, anxiety, and insomnia. I had previously met him in 2016. He currently follows with neurologist, Dr. Bright, at [facility], though has not been seen since April 2019. He presented to the ER today with a several month history of generalized weakness, worse in the last few days with increased imbalance over night, so that, by report, he had to be helped to chair/bed - though he denies this to me. He notes persistent generalized weakness, though by report, his symptoms may be episodic. There was an additional report of associated weak speech at the times when he is weak. Additionally, his RLS symptoms have increased in the last few weeks, particularly after 6pm. Today, on exam, he has a fairly regular right leg myoclonic jerk. He has noticed these in the last several weeks as well. He does admit to some balance issues of recent. He notes that his leg will just buckle. He will not fall but will have to catch his balance. Work-up in the ER included a CT head which I was able to review. It was unremarkable. Laboratory work-up included a normal CBC, CMP, troponin x2, lactate, TSH, UA. He had a B12 of 339. A tick and Lyme panel is pending. Consults Requesting physician: Wood Sanford Review of Systems All systems reviewed & are unremarkable except as noted in HPI and below [facility] Medical History Anxiety (Chronic 01/25/13) 12/26/17 TERESITA-7 SCORE=13 Balance disorder (Chronic 02/10/18) BPH without urinary obstruction (Chronic 04/12/09) Dupuytren's disease (Chronic 07/28/15) Hyperlipidemia (Chronic 01/08/00) Low back pain, non-specific (Chronic) S/P BACK SURGERY 1997 Male erectile disorder (Chronic) Metatarsalgia of left foot (Chronic 07/28/15) Panic attack (Chronic 01/25/13) Partial rupture of Achilles tendon (Chronic 07/15/17) Pterygium (Chronic 04/12/09) REMOVED W/ BILATERAL EYE SURGERY Restless legs (Chronic 04/12/09) Sensorineural hearing loss, bilateral (Chronic 12/14/15) Sleep disturbance (Chronic 03/12/18) Trigger finger, left middle finger (Chronic 07/28/15) Social History Smoking/Tobacco Use Status: Never Alcohol Intake: current Alcohol Intake frequency: 3 or more drinks per day Alcohol type: beer Drug use: Never Substance use type: does not use Do you feel safe at home: Yes Do you feel safe in your relationship?: Yes Visit Medication and Allergies Active Medications Generic Name Dose Route Start Last Admin Trade Name Freq PRN Reason Stop Dose Admin Acetaminophen 325 - 650 mg 04/10/20 12:29 Tylenol PO Q4H PRN PRN Al Hydrox/Mg Hydrox/Simethicone 30 ml 04/10/20 12:29 Mylanta Liquid PO Q2H PRN PRN Dimethicone/Zinc Oxide 0 gm 04/10/20 12:24 Abelardo Protect Cream TP PRN PRN Docusate Sodium 100 mg 04/10/20 12:29 Colace PO TID PRN PRN Enoxaparin Sodium 40 mg 04/10/20 14:00 04/10/20 14:00 Lovenox SC Not Given Q24H LUIS IV Miscellaneous Supplies 1 each 04/10/20 10:15 IV DIRECTED LUIS Magnesium Hydroxide 30 ml 04/10/20 12:29 Milk Of Magnesia PO DAILY PRN PRN Polyethylene Glycol 17 gm 04/10/20 12:29 Miralax PO DAILY PRN PRN Constipation Pramipexole Dihydrochloride 0.125 mg 04/11/20 08:30 Mirapex PO DAILY LUIS Pramipexole Dihydrochloride 0.375 mg 04/10/20 17:00 Mirapex PO BID@1700,2200 LUIS Sodium Chloride 0 ml 04/10/20 10:06 Saline Flush 10 Ml Syringe IVP PRN PRN Allergies No Known Allergies Allergy (Unverified 04/10/20 09:17) Exam Narrative Exam Narrative: Physical Exam: Gen: Patient of apparent stated age, NAD, moderate hypomimia Head and face: no facial or cranial abnormalities Neck: Supple, no meningismus, no occipital tenderness CV: + S1, S2, RRR, no murmur Resp: CTA B/L Abd: soft, nontender, nondistended Ext: No edema. No clubbing or cyanosis. No bony deformity. Neuro Exam: Language: fluency, naming, repetition, and comprehension intact; Mental Status: AAOx3, current events intact, fund of knowledge intact; Speech: no dysarthria Cranial nerves: not performed CN II: visual ulrich intact CN III, IV, : extraocular movements intact, no nystagmus, pupils symmetric and reactive to light CN V: face sensation intact to LT and PP CN VII: no facial asymmetry noted CN VIII: hearing intact bilaterally CN IX, X: palate rises symmetrically CN XI: trapezius/SCM 5/5 bilaterally CN XII: protrudes tongue symmetrically Sensory: intact to LT, PP, vibration, and joint position in all extremities, absent Romberg Motor: bulk and tone intact. No cogwheel rigidity. Moderate bilateral LE bradykinesia, worse on the right. Fine motor movements redcued slightly bilaterally. No pronator drift. Strength 5/5 throughout including the deltoids, biceps, triceps, wrist extensors, hip flexors, knee flexors, knee extensors, ankle flexors, and ankle extensors. Regular right leg myoclonic jerk about every 30 seconds. Occurred when laying in bed and when sitting on side of bed. Reflexes: hyporeflexic throughout with absent bilateral LE reflexes; toes ne utral bilaterally; Coordination: FTN and HTS intact bilaterally Gait: slightly stooped; absent arm swing, mild shuffling but good speed Results Last Vital Signs Temp 36.5 C 04/10/20 13:35 Pulse 54 L 04/10/20 13:35 Resp 16 04/10/20 13:35 BP 166/92 H 04/10/20 13:35 Pulse Ox 100 04/10/20 13:35 Labs Result diagrams: 04/10/20 10:15 04/10/20 10:15 Labs: Laboratory Results - last 24 hr 04/10/20 04/10/20 04/10/20 10:00 10:15 10:15 WBC 4.22 L RBC 5.23 Hgb 15.4 Hct 46.1 MCV 88.1 MCH 29.4 MCHC 33.4 RDW 13.5 Plt Count 219 MPV 9.5 Immature Gran % 0.2 Neutrophils % 63.5 Lymphocytes % 23.0 Monocytes % 9.7 Eosinophils % 3.1 Basophils % 0.5 Absolute Neutrophils 2.68 Absolute Lymphocytes 0.97 L Absolute Monocytes 0.41 Absolute Eosinophils 0.13 Absolute Basophils 0.02 D-Dimer Sodium 139 Potassium 3.8 Chloride 104 Carbon Dioxide 28.5 Anion Gap 6.5 BUN 17 Creatinine 0.84 Estimated GFR/1.73 m2 >= 60.00 Glucose 133 H Lactate Calcium 9.0 Total Bilirubin 0.3 AST 16 ALT 33 Alkaline Phosphatase 72 Troponin I Total Protein 7.8 Albumin 4.0 Vitamin B12 339 TSH 1.00 Urine Color Yellow Urine Clarity Clear Urine pH 7.0 Ur Specific [place] 1.020 Urine Protein Negative Urine Ketones Negative Urine Blood Negative Urine Nitrite Negative Urine Bilirubin Negative Urine Urobilinogen 0.2 Ur Leukocyte Esterase Negative Urine Glucose Negative 04/10/20 04/10/20 04/10/20 10:15 10:15 13:10 WBC RBC Hgb Hct MCV MCH MCHC RDW Plt Count MPV Immature Gran % Neutrophils % Lymphocytes % Monocytes % Eosinophils % Basophils % Absolute Neutrophils Absolute Lymphocytes Absolute Monocytes Absolute Eosinophils Absolute Basophils D-Dimer 369 Sodium Potassium Chloride Carbon Dioxide Anion Gap BUN Creatinine Estimated GFR/1.73 m2 Glucose Lactate 0.6 Calcium Total Bilirubin AST ALT Alkaline Phosphatase Troponin I < 0.05 Total Protein Albumin Vitamin B12 TSH Urine Color Urine Clarity Urine pH Ur Specific [place] Urine Protein Urine Ketones Urine Blood Urine Nitrite Urine Bilirubin Urine Urobilinogen Ur Leukocyte Esterase Urine Glucose 04/10/20 13:10 WBC RBC Hgb Hct MCV MCH MCHC RDW Plt Count MPV Immature Gran % Neutrophils % Lymphocytes % Monocytes % Eosinophils % Basophils % Absolute Neutrophils Absolute Lymphocytes Absolute Monocytes Absolute Eosinophils Absolute Basophils D-Dimer Sodium Potassium Chloride Carbon Dioxide Anion Gap BUN Creatinine Estimated GFR/1.73 m2 Glucose Lactate Calcium Total Bilirubin AST ALT Alkaline Phosphatase Troponin I < 0.05 Total Protein Albumin Vitamin B12 TSH Urine Color Urine Clarity Urine pH Ur Specific [place] Urine Protein Urine Ketones Urine Blood Urine Nitrite Urine Bilirubin Urine Urobilinogen Ur Leukocyte Esterase Urine Glucose
[2020-04-10] MEDS: Pramipexole 0.25 MG TAB 0.5 MG PO ×2 (17:21→21:16)
[2020-04-10 18:53] LABS: Troponin I < 0.05 ng/mL (<0.06)
[2020-04-10 19:22] LABS: NT-proBNP 172 pg/mL (<300)
[2020-04-10] MEDS: Normal Saline Flush 10 ML SYR IVP (20:52)
[2020-04-10 21:13] LABS: COVID-19 RT-PCR UVMMC Result Negative (Negative)
[2020-04-11] VITALS (7 sets, daily range): BP systolic 109–154; BP diastolic 63–77; PULSE 43–62; RESP 17–19; TEMP 36–36.8; O2SAT 96–100
--- NOTE | 2020-04-11 08:27 | W.PM.PROGNOT ---
Date of Service Date of service: 04/11/20 Time of Service: 08:27 Assessment and Plan Assessment and plan (1) Parkinsonism: Status: Acute Qualifiers: Parkinsonism type: unspecified Qualified Code(s): G20 - Parkinson's disease (2) Restless legs: Status: Chronic (3) Myoclonic jerking: Status: Acute (4) Generalized weakness: Status: Acute Assessment and plan: Mr. Butt is a 74-year-old, right-handed man with a past medical history of atypical Parkinsonism who presents with several months of generalized weakness, episodic per report, but worse in the last week with difficulty getting out of chairs and out of bed. Additionally, he has had increased RLS symptoms as well as a new finding of right leg myoclonic jerking on exam. His symptoms have improved with increase in pramipexole to 2 tablets in the morning along with 4 tablets in the afternoon and evening (0.125mg tabs; from 1-3-3). I discussed previous sleep study recommendations and offered to refer him locally to the sleep clinic. He will think about this. Otherwise, I offered to see him in follow-up in conjunction with his primary neurologist. He prefers seeing one specialist at this time. I advised he make a follow-up with Dr. Bright for further treatment and care. I will be happy to see him in follow-up in the future should he desire. Please call with any questions or concerns. Subjective Subjective Interval history since last seen: Mr. Butt reports he slept well over night. Unclear if RLS symptoms improved. RLE myoclonic jerking has resolved. MPI pending later today. Exam Narrative Exam Narrative: Physical Exam: Constitutional: Patient of apparent stated age, well nourished, well developed, no acute distress, moderate hypomimia Neuro: MS/Language/Speech: Alert, oriented, clear language (fluency and comprehension), no dysarthria CN: no facial asymmetry, hearing intact Motor: Normal bulk and tone. No cogwheel rigidity. Mild bradykinesia throughout, worse in the bilateral LE, R worse than L. FMM reduced bilaterally, no pronator drift. 5/5 strength in bilateral upper and lower extremities Sensation: Intact to light touch throughout Coordination: no ataxia Gait: deferred Objective Objective Clinical Data: Abnormal lab results 04/10/20 04/10/20 Range/Units 10:15 10:15 WBC 4.22 L (4.4-10.8) k/cumm Absolute Lymphocytes 0.97 L (1.2-3.4) k/cumm Glucose 133 H (74-106) mg/dL Vital Signs Temperature 36.6 C 04/11/20 08:16 Temperature Source Tympanic 04/11/20 08:16 Pulse 47 L 04/11/20 08:16 Pulse Rhythm Regular 04/11/20 03:14 Pulse 46 L 04/10/20 12:00 Respiratory Rate 18 04/11/20 08:16 Respiratory Effort Non-Labored 04/11/20 03:14 Respiratory Depth Normal 04/11/20 03:14 Respiratory Pattern Normal 04/11/20 03:14 Blood Pressure 154/73 H 04/11/20 08:16 Blood Pressure Position Sitting 04/10/20 09:13 Pulse Oximetry 100 04/11/20 08:16 Oxygen Delivery Method Room Air 04/11/20 08:16 Oxygen Flow Rate 0 04/11/20 08:16 Pain Level 0 04/11/20 08:16 Intake & Output 04/10/20 04/10/20 04/11/20 11:59 23:59 11:59 Intake Total 460 / 460 Balance 460 / 460 Weight 80.739 kg 80.739 kg 81.1 kg Intake: IV Oral 450 / 450 Other: Comment pt took hat out of toilet and voided Voiding Methods Toilet Laboratory Results WBC 4.22 k/cumm (4.4-10.8) L 04/10/20 10:15 RBC 5.23 m/cumm (4.50-6.00) 04/10/20 10:15 Hgb 15.4 g/dL (13.5-17.5) 04/10/20 10:15 Hct 46.1 % (40.0-50.0) 04/10/20 10:15 MCV 88.1 fL (80-95) 04/10/20 10:15 MCH 29.4 pg (27.0-33.0) 04/10/20 10:15 MCHC 33.4 g/dL (32.0-36.0) 04/10/20 10:15 RDW 13.5 % (11.8-14.1) 04/10/20 10:15 Plt Count 219 x1000/uL (130-400) 04/10/20 10:15 MPV 9.5 fL (8.0-11.0) 04/10/20 10:15 Immature Gran % 0.2 % 04/10/20 10:15 Neutrophils % 63.5 04/10/20 10:15 Lymphocytes % 23.0 04/10/20 10:15 Monocytes % 9.7 04/10/20 10:15 Eosinophils % 3.1 04/10/20 10:15 Basophils % 0.5 04/10/20 10:15 Absolute Neutrophils 2.68 k/cumm (1.2-6.7) 04/10/20 10:15 Absolute Lymphocytes 0.97 k/cumm (1.2-3.4) L 04/10/20 10:15 Absolute Monocytes 0.41 k/cumm (0.11-0.7) 04/10/20 10:15 Absolute Eosinophils 0.13 k/cumm (0.0-0.7) 04/10/20 10:15 Absolute Basophils 0.02 k/cumm (0.0-0.2) 04/10/20 10:15 D-Dimer 369 ng/mlFEU (<500) 04/10/20 10:15 Sodium 139 mmol/L (136-145) 04/10/20 10:15 Potassium 3.8 mmol/L (3.5-5.1) 04/10/20 10:15 Chloride 104 mmol/L (98-107) 04/10/20 10:15 Carbon Dioxide 28.5 mmol/L (21.0-32.0) 04/10/20 10:15 Anion Gap 6.5 mmol/L (3-11) 04/10/20 10:15 BUN 17 mg/dL (7-18) 04/10/20 10:15 Creatinine 0.84 mg/dL (0.70-1.30) 04/10/20 10:15 Estimated GFR/1.73 m2 >= 60.00 (mL/min/1.73m2) 04/10/20 10:15 Glucose 133 mg/dL (74-106) H 04/10/20 10:15 Lactate 0.6 mmol/L (0.6-1.4) 04/10/20 13:10 Calcium 9.0 mg/dL (8.5-10.1) 04/10/20 10:15 Total Bilirubin 0.3 mg/dL (0.2-1.0) 04/10/20 10:15 AST 16 U/L (15-37) 04/10/20 10:15 ALT 33 U/L (16-63) 04/10/20 10:15 Alkaline Phosphatase 72 U/L (46-116) 04/10/20 10:15 Troponin I < 0.05 ng/mL (<0.06) 04/10/20 18:05 NT-Pro-B Natriuret Pep 172 pg/mL (<300) 04/10/20 18:05 Total Protein 7.8 g/dL (6.4-8.2) 04/10/20 10:15 Albumin 4.0 g/dL (3.4-5.0) 04/10/20 10:15 Vitamin B12 339 pg/mL (193-986) 04/10/20 10:15 TSH 1.00 uIU/mL (0.36-3.74) 04/10/20 10:15 Urine Color Yellow (Yellow) 04/10/20 10:00 Urine Clarity Clear (Clear) 04/10/20 10:00 Urine pH 7.0 (5-8) 04/10/20 10:00 Ur Specific [place] 1.020 (1.005-1.025) 04/10/20 10:00 Urine Protein Negative mg/dL (Negative) 04/10/20 10:00 Urine Ketones Negative mg/dL (Negative) 04/10/20 10:00 Urine Blood Negative (Negative) 04/10/20 10:00 Urine Nitrite Negative (Negative) 04/10/20 10:00 Urine Bilirubin Negative (Negative) 04/10/20 10:00 Urine Urobilinogen 0.2 EU/dL (Up TO 0.2) 04/10/20 10:00 Ur Leukocyte Esterase Negative (Negative) 04/10/20 10:00 Urine Glucose Negative mg/dL (Negative) 04/10/20 10:00 COVID-19 PCR Negative (Negative) 04/10/20 13:15 Nasopharyn COVID-19 PCR Not Applicable 04/10/20 13:15 Ref Test Perform Site [facility] 04/10/20 13:15
[2020-04-11] MEDS: Pramipexole 0.25 MG TAB PO (08:30)
--- NOTE | 2020-04-11 09:15 | PHA.REVIEW ---
Pharmacy Admission Review - Admission Clinical Review (Last Reviewed 04/10/20 @ 09:10 by Angela Saleh MD) Generalized weakness (Acute) Myoclonic jerking (Acute) Parkinsonism (Acute) Chest pain (Acute) No Known Allergies Allergy (Unverified 04/10/20 09:17) Height 5 ft 11 in Weight 81.1 kg - Comments Comments/Follow Ups: Had Neurology consult, (see note), referral to at [facility] Neurology. Lexiscan stress test today. - Renal Dosing Renal Dosing: BUN 17 mg/dL (7-18) 04/10/20 10:15 Creatinine 0.84 mg/dL (0.70-1.30) 04/10/20 10:15 Medications needing adjustments: Reviewed (est CrCl~ 82 mL/min Meds OK) - Anticoagulation Anticoagulation: Hgb 15.4 g/dL (13.5-17.5) 04/10/20 10:15 Hct 46.1 % (40.0-50.0) 04/10/20 10:15 Plt Count 219 x1000/uL (130-400) 04/10/20 10:15 Creatinine 0.84 mg/dL (0.70-1.30) 04/10/20 10:15 Medications: Enoxaparin - Opiate Usage Evaluate Pain Scale/Pains Meds: N/A Scheduled Bowel Reg ordered if on Opiates?: Yes - Relevant Labs Sodium 139 mmol/L (136-145) 04/10/20 10:15 Potassium 3.8 mmol/L (3.5-5.1) 04/10/20 10:15 Chloride 104 mmol/L (98-107) 04/10/20 10:15 - DM Control DM Control: Glucose 133 mg/dL (74-106) H 04/10/20 10:15 Insulin Dosing: N/A - Heart Failure/VA Heart Failure/VA: Troponin I < 0.05 ng/mL (<0.06) 04/10/20 18:05 NT-Pro-B Natriuret Pep 172 pg/mL (<300) 04/10/20 18:05 EF%, SILVANO's, B-Blockers, Diuretics: Reviewed (Has low Heart rate due to him being a runner.) - BP Control BP Control: Blood Pressure 134/77 Blood Pressure 154/73 Blood Pressure 137/77 Blood Pressure 146/83 If elevated: N/A - Qtc Review If Elevated: Reviewed (QTc-413 OK) - IV to PO Switch IV Medications: N/A - Home Meds Home Med List reviewed: Reviewed (Flexeril, Ativan not ordered) - Current meds Current Medication Order Review: Reviewed (Neurologist has adjusted Pramipexole dose for patients (RLS) Restless leg syndrom)
--- NOTE | 2020-04-11 09:30 | PT.INIE ---
Date of service: 04/11/20 Time of Service: 09:30 PT Notes Visit Reasons: GENERALIZED WEAKNESS,AMBULATORY DYSFUNCTION,?PARK Physical Therapy Inpatient Initial Evaluation Date: 04/11/2020 Referring Doctor: Wood Patiño MD PT Orders: PT CONSULT: Fall safety assessment Precautions: Fall. Standard. Activity as tolerated. Patient Profile/Admitting Diagnosis: Nitin is a 74-year-old male who presented to the ED on 04/10/2020 with chief complaint of neuro sharp chest pain with exertion and gradually increasing generalized episodic muscle weakness. Patient is diagnosed with chest pain, parkinsonism, myoclonic jerking, restless leg syndrome, bradykinesia, and generalized weakness with referral for skilled physical therapy services in order to facilitate safe discharge planning. PMHX: [ Medical History Anxiety (Chronic 01/25/13) 12/26/17 TERESITA-7 SCORE=13 Balance disorder (Chronic 02/10/18) BPH without urinary obstruction (Chronic 04/12/09) Dupuytren's disease (Chronic 07/28/15) Hyperlipidemia (Chronic 01/08/00) Low back pain, non-specific (Chronic) S/P BACK SURGERY 1997 Male erectile disorder (Chronic) Metatarsalgia of left foot (Chronic 07/28/15) Panic attack (Chronic 01/25/13) Partial rupture of Achilles tendon (Chronic 07/15/17) Pterygium (Chronic 04/12/09) REMOVED W/ BILATERAL EYE SURGERY Restless legs (Chronic 04/12/09) Sensorineural hearing loss, bilateral (Chronic 12/14/15) Sleep disturbance (Chronic 03/12/18) Trigger finger, left middle finger (Chronic 07/28/15) Social History/Home Situation: Patient lives with in a multilevel house with 3 steps to enter. He has a flight of steps going up to the second floor of the house and a flight to the basement. 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 Patient is independent with all aspects of ADLs without the need for an assistive ambulatory device nor adaptive equipment. He likes to run and bike but his activity level has significantly diminished due to his progressive weakness related to parkinsonism. Equipment Owned/DME: None Subjective: I feel more stable when I am running than when I am walking. Patient reports mild dizziness at the start of the session but did not limit his ability to participate in mobility assessment. He denies headache and chest pain throughout PT session. Objective: General Observation: Telemetry monitoring in place. Bilateral TEDs on. Mental Status: Alert and oriented x4. Pain: None reported Vital Signs: 130/73 mmHg, 61 bpm, 99% on room air. ROM: Right Upper Extremity: Shoulder Flexion WFL. Shoulder abduction WFL. Elbow flexion WFL. Wrist flexion WFL. Opening and closing of hand WFL. Left Upper Extremity: Shoulder Flexion WFL. Shoulder abduction WFL. Elbow flexion WFL. Wrist flexion WFL. Opening and closing of hand WFL. Right Lower Extremity: Hip flexion WFL. Hip abduction WFL. Knee flexion WFL. Ankle dorsiflexion WFL. Ankle plantarflexion WFL. Left Lower Extremity: Hip flexion WFL. Hip abduction WFL. Knee flexion WFL. Ankle dorsiflexion WFL. Ankle plantarflexion WFL. Strength: Right Upper Extremity: Shoulder flexors 5/5. Shoulder abductors 5/5. Elbow flexors 5/5. Elbow extensors 5/5. Food [employer] Beverage Assistant strong. Left Upper Extremity: Shoulder flexors 5/5. Shoulder abductors 5/5. Elbow flexors 5/5. Elbow extensors 5/5. Food And Beverage Assistant strong. Right Lower Extremity: Hip flexors 5/5. Hip abductors 5/5. Knee flexors 5/5. Knee extensors 5/5. Ankle dorsiflexors 5/5. Ankle plantarflexors 5/5. Left Lower Extremity:Hip flexors 5/5. Hip abductors 5/5. Knee flexors 5/5. Knee extensors 5/5. Ankle dorsiflexors 5/5. Ankle plantarflexors 5/5. Sensation: Intact as to pain and pressure on bilateral lower extremities. Bed Mobility/Transfers: Rolling independent Supine to sit independent Sit to supine independent Sit to stand independent Stand to sit independent Bed to chair independent Chair to bed independent Gait: Patient was able to tolerate level surface ambulation of 520 feet without an assistive device with supervision assist only by PT. He did complain of mild dizziness that did not limit his ability to complete the mobility assessment. Step through gait pattern. No LOB. No SOB. No complaints of chest pain received. Balance: Static Sitting: Normal Dynamic Sitting: Normal Static Standing: Normal Dynamic Standing: Good Special Tests: Mobility Limitations Standardized Measure [facility] AM-PAC 6 clicks Basic Mobility Inpatient Short Form: Raw Score: 24 CMS Score: 0% deficit Informed Consent/Education: Patient instructed in purpose of PT consult and plan of care. 4-stage balance test: Patient was able to tolerate feet together and semi-tandem stance for 10 seconds but needed minimal assist for performing full tandem and 1 legged stance indicating at risk for falls. Assessment: Patient did demonstrate limited ability to perform advanced level balance activities as evidenced by the 4 stage balance test. However, he passed his bed mobility, transfer, and ambulation assessment with no difficulty using no assistive ambulatory device. He did indicate that he may need to modify his lifestyle making sure that his activities remain manageable so as not to compromise his safety. Patient presents with clinical signs and symptoms consistent with current/admitting diagnoses that have resulted to mobility limitations, gait instability, generalized weakness, and impairment of motor control as demonstrated by the following impairment level findings: 1. Impaired standing balance 2. Impaired activity tolerance Impairments are contributing to the following functional limitations: 1. Increase completion time for mobility ADL performance 2. Increased fall risk Patient is assessed as a 64091 low complexity based on the following: History: 74-year-old male with impairment level findings, functional limitations, and medical history as listed above Examination: Normal range of motion impairments more strength impairments exhibited during this examination Presentation: Stable Decision Makin low complexity Goals: N/A. PT consult only. Plan/PT POC: N/A. PT consult only. DISCHARGE RECOMMENDATIONS: Home when medically cleared. May benefit from outpatient physical therapy services for advanced level balance exercises. TREATMENT CODE/TIME: 90031 x 40 minutes beginning at 9:30 AM. Thank you very much for this referral. Shelia Mejía PT, DPT, CLT [facility] [place], [place]
--- NOTE | 2020-04-11 09:38 | OTIE_ITS ---
Occupational Therapy Notes Inpatient Occupational Therapy Evaluation Date: 04/11/20 Referring Doctor:Wood Sanford MD OT Orders: Non-Urgent Fall Safety Assessment Precautions: Fall, Standard, FULL PATIENT PROFILE/ADMITTING DIAGNOSIS: Pt is a 74 year old male who presented to the ER on 04/10 with c/o of chest pain, parkinsonism, restless leg syndroms, myoclonic jerking of his (R) leg and overall generalized weakness. He states that this has been going on for about 3-4 weeks now. Past Medical History- Medical History Anxiety (Chronic 01/25/13) 12/26/17 TERESITA-7 SCORE=13 Balance disorder (Chronic 02/10/18) BPH without urinary obstruction (Chronic 04/12/09) Dupuytren's disease (Chronic 07/28/15) Hyperlipidemia (Chronic 01/08/00) Low back pain, non-specific (Chronic) S/P BACK SURGERY 1997 Male erectile disorder (Chronic) Metatarsalgia of left foot (Chronic 07/28/15) Panic attack (Chronic 01/25/13) Partial rupture of Achilles tendon (Chronic 07/15/17) Pterygium (Chronic 04/12/09) REMOVED W/ BILATERAL EYE SURGERY Restless legs (Chronic 04/12/09) Sensorineural hearing loss, bilateral (Chronic 12/14/15) Sleep disturbance (Chronic 03/12/18) Trigger finger, left middle finger (Chronic 07/28/15) Social History/Home Situation: Pt lives in a private home with his . He does not utilize an (A) device at baseline. He is (I) with his ADL/IADLs at his baseline level of function. He notes that he drives. He has 2-3 steps into his home with railings and a flight of stairs inside his home. He has both a tub shower and a walk in shower which he reports that he has difficulty getting in and out of the tub so he just uses his walk-in shower. He states that he really needs grab bars and is looking into how he can get them installed. This is something that he states he feels would help with his functional (I) and safety within the bath tub. 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 He enjoys walking, hiking, running. He notes that he has children. He specifically speaks of his daughter. Equipment owned/DME: None SUBJECTIVE: Pt was sitting in the chair when OT arrived. He was agreeable to OT session and reports that he is going down for a stress test this morning. He states that he is feeling better at this time. OBJECTIVE: General Observation: Pleasant, able to answer questions appropriately. Mental Status: A&Ox4 Pain: no c/o pain ROM: RUE AROM WFL L UE AROM WFL STRENGTH: RUE 4/5 throughout globally LUE 4/5 throughout globally SENSATION: intact (B) UE FUNCTIONAL MOBILITY/ADLS: Transfers without (A) device Sit-Stand (I) Stand-sit (I) Chair-bed (I) BATHING pt denies. He states that this is not a concern at this time as he prepares to go down for testing. DRESSING seated position Dressing LE Able to (I) don and doff (B) socks with ideal technique. GROOMING In seated position he is able to touch his head (B) with both UE indicating that he would be able to bring his hand to hair and mouth for teeth and hair brushing. OT would like to further assess this in the standing position. TOILETING Denies at this time. EATING (I) in seated position with no issues swallowing, chewing or cutting food. BALANCE: Static sitting Normal Dynamic Sitting Normal Static Standing Normal Dynamic Standing Good SPECIAL TESTS: Daily Activity Limitations Standardized Measure [facility] AM -PAC ?6 clicks? Daily Activity Inpatient Short Form: Raw score: 22 Standardized score: 47.10 CMS score: 25.80% INFORMED CONSENT/EDUCATION: Pt instructed in purpose of OT Consult and plan of care. ASSESSMENT: Patient is a 74-year-old male referred to occupational therapy services with diagnosis of chest pain, parkinsonism, restless leg syndrome, myoclonic jerking (R) leg, generalized weakness. Patient presents with clinical signs and symptoms consistent with dx, as demonstrated by the following im pairment level findings: Decreased functional mobility required for performance of ADL/IADL routines, parkisonian symptoms increased at this time with jerking of (R) leg which does seem to be improving limiting functional (I) in seated ADLs/IADLs. Impairments are contributing to the following functional limitations: Decreased functional mobility including getting out of bed to perform his ADLs/IADLs int he morning and at night for toileting routine, decreased fine motor control of (B) UE limited buttons, fasteners required for dressing routine. AMPAC score 22 Patient is assessed as a Low 50823 complexity based on the following: History: See above Examination: see functional limitations as noted above Presentation: evolving Decision Making: AMPAC score 22 GOALS Goals x1 week 1. Transfers (I) 2. Dressing (I) 3. Bathing (I) 4. Toileting (I) 5. Eating (I) PLAN OF CARE/TREATMENT PLAN: 1x/day, 5 days/ week x 1week Initiate Occupational Therapy Services for bathing, dressing, grooming, toileting, eating, transfer training to facilitate increased (I) and assist pt with adaptive equipment and functional (I) in ADL/IADL routines. DISCHARGE RECOMMENDATIONS OT recommends that pt return home when medically cleared per MD with OT referral for assessment of home set up and ADLs in the home setting for adaptive equipment needs. TREATMENT TIME/MINUTES/CODES 38120, 25 minutes (09:05) Debi Lane OTR/[facility]
[2020-04-11 10:41] LABS: Lyme Ab w Rflx to Lyme Confirm Negative (Negative)
--- NOTE | 2020-04-11 10:50 | INITIAL_ITS ---
- If Service Date Differs Date of service: 04/11/20 Time of Service: 10:50 Care Management Initial Assess REASON FOR HOSPITALIZATION:: Generilized weakness, chest pain PAST MEDICAL HISTORY/PAST SURGICAL HISTORY:: Anxiety (Chronic 01/25/13). 12/26/17 TERESITA-7 SCORE=13. Balance disorder (Chronic 02/10/18). BPH without urinary obstruction (Chronic 04/12/09). Dupuytren's disease (Chronic 07/28/15). Hyperlipidemia (Chronic 01/08/00). Low back pain, non-specific (Chronic). S/P BACK SURGERY 1997. Male erectile disorder (Chronic). Metatarsalgia of left foot (Chronic 07/28/15). Panic attack (Chronic 01/25/13). Partial rupture of Achilles tendon (Chronic 07/15/17). Pterygium (Chronic 04/12/09). REMOVED W/ BILATERAL EYE SURGERY. Restless legs (Chronic 04/12/09). Sensorineural hearing loss, bilateral (Chronic 12/14/15). Sleep disturbance (Chronic 03/12/18). Trigger finger, left middle finger (Chronic 07/28/15) PREVIOUS FUNCTIONAL STATUS/SOCIAL/FAMILY SUPPORTS:: Nitin lives with his spouse Ange, he has two grown children that live in [place]. He is indepedent with ADL's he continues to drive. He and his spouse travel to [place] every year. 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 He states his family is supportive. CURRENT FUNCTIONAL STATUS:: Nitin is alert he is sitting up in the chair in his room after working with PT. Per PT report he did well and was able to ambulate in the halls. Nitin states he has tried several medications in the past to treat his restless leg with little relief. He states they began acting up two weeks ago and has made it difficult for him to sleep. Nitin is willing to try new medications to treat his RLS and is hopeful something will make a difference. He believes he will be discharged today and denies any additional needs at home. ADVANCE DIRECTIVES:: On file Has patient been provided with information about the portal?: Yes Did the patient sign up for the portal?: No (provided the info) CODE STATUS:: Full Code INSURANCE COVERAGE / FINANCIAL ISSUES:: Medicare and [facility] CURRENT HOME/COMMUNITY SERVICES/EQUIPMENT:: No current services PRIMARY CARE PHYSICIAN:: POTENTIAL DISCHARGE NEEDS:: Follow up with primary care and neurology as directed PATIENT/FAMILY EDUCATION NEEDS:: Discharge education, limitations and follow up plan of care including ask me three and self management. ANTICIPATED BARRIERS TO DISCHARGE:: None indentified TRANSPORTATION:: Via private car with spouse at time of discharge. PLAN:: Nitin will be discharged when medically ready. Anticipate no additional needs at time of discharge. Care management will continue to provide support and assess for discharge needs.
--- NOTE | 2020-04-11 11:15 | DI.NM_ITS ---
APPROVED REPORT Exam: Pharmacologic Patient Location: In-Patient Room/Bed: 208 [facility] Nurse: Mickie Hein RN BMI: 24.82 Baseline Rhythm: Sinus Rhythm Comment: Borderline short TX interval, Supraventricular Bigeminy. Indications: Patient admitted to [facility] on 04/10/2020. Patient reports midsternal chest pressure (always with activity), pain = like ???breathing in cold air???, at its worst is 8/10 that is relieved with r est. Medical History Medical History: Anxiety, Panic Attacks. Cardiac Medications: No cardiac medications per patient. Allergies: No known drug allergies Cardiac Risk Factors: FHX of CAD, HTN, Hyperlipidemia Previous Cardiac Procedures: None Pretest Chest Pain Characteristics: None Exercise History: Physically active Physical Disabilities: Legs Lung Sounds: Clear to auscultation Heart Sounds: Irregular Stress Test Details Test: Exercise stress converted to pharmacologic stress due to failure to obtain a diagnostic stress test. Reason for pharmacologic stress test: changed from exercise stress test due to inability to reach t arget heart rate. Nuclear Acquisition: Rest Tc-99m/Stress Tc-99m 1 day Rest Isotope: Tc-99m Sestamibi. Dose: 11.0 Date: 04/11/2020 Injection Time: 1115 Stress Isotope: Tc-99m Sestamibi. Dose: 37.0 Date: 04/11/2020 Injection Time: 1400 HR Resting HR Supine: 61 bpm Max Heart Rate (APMHR): 146 bpm Resting HR Standin bpm Target HR (85% APMHR): 124 bpm Max HR Achieved: 112 bpm % of APMHR: 76 BP Resting BP Supine: 178/80 mmHg Resting BP Standin/80 mmHg Max BP: 190/60 mmHg ECG Resting ECG: Sinus Rhythm Comment: Borderline short TX interval, Supraventricular Bigeminy. ST Change: 1.[address] depression leads V3 through V6 Stage: 4 Arrhythmia: None Recovery ECG: Sinus Rhythm, nonspecific ST-T abnormalities Clinical Reason for Termination: Unable to meet target heart rate with exercise stress/stopped exercise test d ue to safety concerns at 9 minutes. Then transitioned to Lexiscan stress test. Stress Symptoms: Patient reported midsternal cold air feeling at approximately 1 minute 47 seconds of post Lexiscan injection. Exercise duration: 9 min2 sec Highest Stage Reached: Stage 4: 4.2 mph at 16% grade. Exercise capacity: 10.38 METs Functional Capacity: Above average capacity Stress ECG Conclusion 1. Patient exercised on the Jeremias protocol to a workload of 10.38 METS. He achieved 76% of predicted heart rate for age and was then treated with regadenoson 2. Normal heart rate and blood pressure response to exercise 3. Electrocardiographically consistent with myocardial ischemia, 1.[address] depression noted leads V3 through V6 at peak exercise 4. There were no significant dysrhythmias 5. Schwartz treadmill score is -1, moderate risk Stress Test Summary STAGE Time (mins) Speed (mph) Grade (%) HR BP SYMPTOMS METS Supine 61 178/80 Standing 64 160/80 1 3 1.7 10 87 4.6 2 6 2.5 12 98 7 3 9 3.4 14 111 170/80 10.2 1 min post Lexiscan injection 95 190/60 3 min post Lexiscan injection 86 170/80 6 min post Lexiscan injection 77 130/60 9 min post Lexiscan injection 76 120/70 MPI Conclusion Myocardial perfusion is consistent with mild ischemia of the lateral wall Ejection fraction is 62% Radiologist Interpretation Radiologist agrees with Clinical Nursing Professor's Interpretation. Radiologist Interpretation by: Hugo Allen MD Interpretation Date/Time: 04/11/2020 15:49:16
--- NOTE | 2020-04-11 14:05 | CHAPLAIN ---
Nitin was sitting up in a chair, dressed in his own clothes when I visited. He said he expects to be discharged later today. He didn't elaborate about what brought him here. 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 Nitin said she moved up here from [place] when he was worried about being drafted for the [place] War.
[2020-04-11] MEDS: Regadenoson 0.4 MG/5 ML SYR IVP (14:48)
[2020-04-11] MEDS: Enoxaparin 40 MG/0.4 ML SYR SC (15:21)
--- NOTE | 2020-04-11 16:36 | PGE_ITS ---
Date of Service Date of service: 04/11/20 Time of Service: 16:37 Assessment and Plan Assessment and plan (1) Coronary artery disease: Status: Acute Assessment and plan: Preliminary report from today's stress test converted to MPI stress test due to inability to get to target heart rate, positive for what looks to be single-vessel disease in the LAD distribution. This probably explains his exercise-induced chest discomfort shortness of breath and fatigue. I am not sure explains his more pervasive generalized weakness. His pulse rate and blood pressure are low at baseline raising concern on my part that standard medical treatment with a beta-nicolás may provoke orthostatic symptoms. I want to keep him here overnight so we can monitor pulse rate and blood pressure r esponse to low-dose carvedilol. Start on aspirin and statin. Cardiology consultation tomorrow to assist with decision regarding pursuing invasive testing with angiography. Results of stress test discussed with his by phone in the presence of the patient. (2) Parkinsonism: Status: Chronic Assessment and plan: Seems to be at baseline. PT and OT consultations appreciated. Qualifiers: Parkinsonism type: unspecified Qualified Code(s): G20 - Parkinson's disease (3) Generalized weakness: Status: Acute Assessment and plan: No obvious metabolic problem to explain symptoms. Perhaps related to his parkinsonism? Perhaps this is a manifestation of coronary artery disease? Monitor for development of new symptoms that might point to a cause. (4) Restless legs: Status: Chronic Assessment and plan: Pramipexole dose increased. Monitor for adverse effects. Subjective Subjective Interval history since last seen: Since admission has had no further episodes of exertional dyspnea although has not done nearly the level of exertion that provoke symptoms at home. Sinus bradycardia on telemetry with rates when he is sleeping as low as 35. During the daytime pulse rates have been in the 60s. No dyspnea walking around on the floor. His legs feel stronger. He may still be having episodic myoclonic jerks? PT as noted this but not seen by Dr. Rodriguez earlier this morning. I have not seen any and he does not report them. Stress test midday with preliminary report noting 1.[address] depressions in the lateral precordial leads. He has above average exercise tolerance, going to 10.4 METS. MPI imaging showed mild ischemia of the lateral wall with an EF estimated at 62%. No dysrhythmias induced during stress, blood pressure peaked at 190/60. Exam Narrative Exam Narrative: He is awake alert with slightly reduced facial movements and narrow gait when walking. No JVD. Lungs are clear. Slow regular heart rhythm without S3-S4 or murmur. He stands promptly, he does better with his balance if he walks fast as opposed to walking slowly. I do not see any myoclonic jerking in the time I am with him. No rest tremor. Pivots and turns without losing his balance. Limited arm swing when he is walking. Somewhat forward stooped posture. Speech is clear with no hesitations. Objective Objective Clinical Data: Vital Signs Temperature 36.8 C 04/11/20 15:22 Temperature Source Tympanic 04/11/20 15:22 Pulse 62 04/11/20 15:22 Pulse Rhythm Regular 04/11/20 08:34 Pulse 46 L 04/10/20 12:00 Respiratory Rate 18 04/11/20 15:22 Respiratory Effort Non-Labored 04/11/20 08:34 Respiratory Depth Normal 04/11/20 08:34 Respiratory Pattern Normal 04/11/20 08:34 Blood Pressure 110/63 04/11/20 15:22 Blood Pressure Position Sitting 04/10/20 09:13 Pulse Oximetry 98 04/11/20 15:22 Oxygen Delivery Method Room Air 04/11/20 15:22 Oxygen Flow Rate 0 04/11/20 15:22 Pain Level 0 04/11/20 11:11 Comment 04/11/20 09:11 Intake & Output 04/10/20 04/11/20 04/11/20 23:59 11:59 23:59 Intake Total 460 / 460 Balance 460 / 460 Weight 80.739 kg 81.1 kg Intake: IV Oral 450 / 450 Other: Urine Appearance Clear Comment pt took hat out of toilet and voided Voiding Methods Toilet Toilet Laboratory Results WBC 4.22 k/cumm (4.4-10.8) L 04/10/20 10:15 RBC 5.23 m/cumm (4.50-6.00) 04/10/20 10:15 Hgb 15.4 g/dL (13.5-17.5) 04/10/20 10:15 Hct 46.1 % (40.0-50.0) 04/10/20 10:15 MCV 88.1 fL (80-95) 04/10/20 10:15 MCH 29.4 pg (27.0-33.0) 04/10/20 10:15 MCHC 33.4 g/dL (32.0-36.0) 04/10/20 10:15 RDW 13.5 % (11.8-14.1) 04/10/20 10:15 Plt Count 219 x1000/uL (130-400) 04/10/20 10:15 MPV 9.5 fL (8.0-11.0) 04/10/20 10:15 Immature Gran % 0.2 % 04/10/20 10:15 Neutrophils % 63.5 04/10/20 10:15 Lymphocytes % 23.0 04/10/20 10:15 Monocytes % 9.7 04/10/20 10:15 Eosinophils % 3.1 04/10/20 10:15 Basophils % 0.5 04/10/20 10:15 Absolute Neutrophils 2.68 k/cumm (1.2-6.7) 04/10/20 10:15 Absolute Lymphocytes 0.97 k/cumm (1.2-3.4) L 04/10/20 10:15 Absolute Monocytes 0.41 k/cumm (0.11-0.7) 04/10/20 10:15 Absolute Eosinophils 0.13 k/cumm (0.0-0.7) 04/10/20 10:15 Absolute Basophils 0.02 k/cumm (0.0-0.2) 04/10/20 10:15 D-Dimer 369 ng/mlFEU (<500) 04/10/20 10:15 Sodium 139 mmol/L (136-145) 04/10/20 10:15 Potassium 3.8 mmol/L (3.5-5.1) 04/10/20 10:15 Chloride 104 mmol/L (98-107) 04/10/20 10:15 Carbon Dioxide 28.5 mmol/L (21.0-32.0) 04/10/20 10:15 Anion Gap 6.5 mmol/L (3-11) 04/10/20 10:15 BUN 17 mg/dL (7-18) 04/10/20 10:15 Creatinine 0.84 mg/dL (0.70-1.30) 04/10/20 10:15 Estimated GFR/1.73 m2 >= 60.00 (mL/min/1.73m2) 04/10/20 10:15 Glucose 133 mg/dL (74-106) H 04/10/20 10:15 Lactate 0.6 mmol/L (0.6-1.4) 04/10/20 13:10 Calcium 9.0 mg/dL (8.5-10.1) 04/10/20 10:15 Total Bilirubin 0.3 mg/dL (0.2-1.0) 04/10/20 10:15 AST 16 U/L (15-37) 04/10/20 10:15 ALT 33 U/L (16-63) 04/10/20 10:15 Alkaline Phosphatase 72 U/L (46-116) 04/10/20 10:15 Troponin I < 0.05 ng/mL (<0.06) 04/10/20 18:05 NT-Pro-B Natriuret Pep 172 pg/mL (<300) 04/10/20 18:05 Total Protein 7.8 g/dL (6.4-8.2) 04/10/20 10:15 Albumin 4.0 g/dL (3.4-5.0) 04/10/20 10:15 Vitamin B12 339 pg/mL (193-986) 04/10/20 10:15 TSH 1.00 uIU/mL (0.36-3.74) 04/10/20 10:15 Urine Color Yellow (Yellow) 04/10/20 10:00 Urine Clarity Clear (Clear) 04/10/20 10:00 Urine pH 7.0 (5-8) 04/10/20 10:00 Ur Specific [place] 1.020 (1.005-1.025) 04/10/20 10:00 Urine Protein Negative mg/dL (Negative) 04/10/20 10:00 Urine Ketones Negative mg/dL (Negative) 04/10/20 10:00 Urine Blood Negative (Negative) 04/10/20 10:00 Urine Nitrite Negative (Negative) 04/10/20 10:00 Urine Bilirubin Negative (Negative) 04/10/20 10:00 Urine Urobilinogen 0.2 EU/dL (Up TO 0.2) 04/10/20 10:00 Ur Leukocyte Esterase Negative (Negative) 04/10/20 10:00 Urine Glucose Negative mg/dL (Negative) 04/10/20 10:00 Lyme Disease Antibody Negative (Negative) 04/10/20 10:15 COVID-19 PCR Negative (Negative) 04/10/20 13:15 Nasopharyn COVID-19 PCR Not Applicable 04/10/20 13:15 Ref Test [facility] 04/10/20 13:15
[2020-04-11] MEDS: Aspirin E.C. 81 MG TABEC PO (17:36)
[2020-04-11] MEDS: Pramipexole 0.25 MG TAB 0.5 MG PO ×2 (17:36→21:52)
[2020-04-11] MEDS: Carvedilol 3.125 MG TAB PO (19:33)
[2020-04-11] MEDS: Atorvastatin 40 MG TAB PO (19:33)
[2020-04-12 03:45] VITALS: BP 125/66; PULSE 43; RESP 17; TEMP 36.8; O2SAT 99
[2020-04-12 07:18] VITALS: BP 145/71; PULSE 53; RESP 20; TEMP 36.3; O2SAT 100
[2020-04-12 07:19] LABS: Calculated LDL 92 mg/dL (<100); Cholesterol 167 mg/dL (<200); HDL Cholesterol 61 mg/dL (40-60); Magnesium 2.1 mg/dL (1.8-2.4); Triglyceride 74 mg/dL (<150)
[2020-04-12] MEDS: Pramipexole 0.25 MG TAB PO (07:52)
[2020-04-12] MEDS: Aspirin E.C. 81 MG TABEC PO (07:52)
[2020-04-12] MEDS: Carvedilol 3.125 MG TAB PO (07:52)
[2020-04-12 09:30] VITALS: BP 127/84; PULSE 46; RESP 16; TEMP 36; O2SAT 97
--- NOTE | 2020-04-12 09:31 | NT_ITS ---
Date of service: 04/12/20 Time of Service: 09:15 Occupational Therapy Notes 04/12/20 OT attempted to see pt who denies OT services at this time. He notes that he already performed his ADL at this time. Debi Lane, OTR/[facility]
[2020-04-12] MEDS: Normal Saline Flush 10 ML SYR IVP (10:31)
[2020-04-12 12:15] VITALS: BP 142/74; PULSE 56; RESP 20; TEMP 36.7; O2SAT 98
--- NOTE | 2020-04-12 12:16 | PDOC.CMPRO ---
- If Service Date Differs Date of service: 04/12/20 Time of Service: 12:16 Care Management Progress Note S/O: Nitin transition to acute from observation. He is awaiting a bed at [facility] for anticipated cardiac cath. He will transfer acutely. did stop in the morning to see him. No other changes today he will need to follow up with cardiology and primary care as outpatient once he is discharged from [facility]. A: Nitin is a 74 year old male admitted with Chest pain, pending transfer to [facility] P: Nitin will be transferred via ambulance once a bed is available. CM to continue to assess for discharge needs while Nitin remains at [facility].
--- NOTE | 2020-04-12 12:50 | W.PM.PROGNOT ---
Date of Service Date of service: 04/12/20 Time of Service: 10:30 Assessment and Plan Assessment and plan (1) Coronary artery disease: Status: Acute Assessment and plan: Suspicious history of exertional chest pain and dyspnea with recent MPI stress test showing ischemia in the LAD distribution. Brief episode of chest pain midmorning. Acceptable blood pressure but bradycardia with carvedilol. It is unclear if this has contributed in any way to his reports of a little bit more lightheadedness when he gets up. Very brief episode of chest pain reminiscent of his exertional pain midday today with no ECG changes nor any significant change in his heart rate and no dysrhythmias. Case discussed with [facility] cardiology. Libby consensus that coronary angiography should be done prior to hospital discharge. Recommendations in addition to aspirin and statin are to start heparin. If he has continued chest pain episodes I will add clopidogrel as well. Carvedilol stopped because of bradycardia. Anticipate transfer to [facility] within 24 hours, dependent upon bed availability. Echocardiogram has been requested, unknown at this time if it will be completed prior to transfer. (2) Parkinsonism: Status: Chronic Assessment and plan: Seems to be at baseline. No change in management plan. Qualifiers: Parkinsonism type: unspecified Qualified Code(s): G20 - Parkinson's disease (3) Generalized weakness: Status: Acute Assessment and plan: This seems to be better. Complaints have been vague from the beginning. Perhaps related to parkinsonism? At this point no further work-up planned. Monitor for worsening. (4) Restless legs: Status: Chronic Assessment and plan: Pramipexole dose increased on day 1 of hospitalization. Monitor for adverse effects. No obvious side effects thus far. Subjective Subjective Interval history since last seen: Mr. Butt had a little bit of difficulty sleeping last night, but not because of trouble with restless leg. He did not have any chest pain until midmorning when he had about a 15-second episode of midsternal discomfort reminiscent of the discomfort he had with exertion prior to hospitalization. No associated diaphoresis lightheadedness shortness of breath. No noted dysrhythmia on telemetry. He has had sinus bradycardia, not clearly worsened overnight with the addition of carvedilol. However, blood pressure dropped from mid 50s to mid 40s after his morning dose of 3.125 carvedilol. Blood pressures have not been excessively low with the addition of carvedilol. Case discussed with [facility], Yanira Sykes APRN cardiology. Recommendation is to transfer for coronary angiography. However, no bed available at this point, might not be until tomorrow. Recommends starting on heparin because of the abnormal stress test. Continue aspirin and statin and hold off on clopidogrel unless there are symptoms or signs of unstable angina. He is a bit disappointed that he is not going home today but accepts the recommendations. Exam Narrative Exam Narrative: No distress seated, stands promptly, walks with narrow gait, limited arm swinging but no ataxia and no provocation of chest pain. Midday vital signs blood pressure 142/74 pulse 54. No JVD. Lungs clear. No heart murmur S3-S4 or pericardial friction rub. No pitting edema in the extremities. No rest tremor. Objective Objective Clinical Data: Vital Signs Temperature 36.7 C 04/12/20 12:15 Temperature Source Tympanic 04/12/20 12:15 Pulse 56 L 04/12/20 12:15 Pulse Rhythm Regular 04/12/20 07:57 Pulse 46 L 04/10/20 12:00 Respiratory Rate 20 04/12/20 12:15 Respiratory Effort Non-Labored 04/12/20 07:57 Respiratory Depth Normal 04/12/20 07:57 Respiratory Pattern Normal 04/12/20 07:57 Blood Pressure 142/74 H 04/12/20 12:15 Blood Pressure Position Sitting 04/10/20 09:13 Pulse Oximetry 98 04/12/20 12:15 Oxygen Delivery Method Room Air 04/12/20 12:15 Oxygen Flow Rate 0 04/12/20 12:15 Pain Level 0 04/12/20 12:15 Comment 04/11/20 09:11 Intake & Output 04/11/20 04/12/20 04/12/20 23:59 11:59 23:59 Intake Total 490 / 490 240 / 240 Balance 490 / 490 240 / 240 Weight 81.7 kg Intake: IV Oral 480 / 480 240 / 240 Other: Urine Color Yellow Yellow Urine Appearance Clear Clear Voiding Methods Toilet Toilet Laboratory Results WBC 4.22 k/cumm (4.4-10.8) L 04/10/20 10:15 RBC 5.23 m/cumm (4.50-6.00) 04/10/20 10:15 Hgb 15.4 g/dL (13.5-17.5) 04/10/20 10:15 Hct 46.1 % (40.0-50.0) 04/10/20 10:15 MCV 88.1 fL (80-95) 04/10/20 10:15 MCH 29.4 pg (27.0-33.0) 04/10/20 10:15 MCHC 33.4 g/dL (32.0-36.0) 04/10/20 10:15 RDW 13.5 % (11.8-14.1) 04/10/20 10:15 Plt Count 219 x1000/uL (130-400) 04/10/20 10:15 MPV 9.5 fL (8.0-11.0) 04/10/20 10:15 Immature Gran % 0.2 % 04/10/20 10:15 Neutrophils % 63.5 04/10/20 10:15 Lymphocytes % 23.0 04/10/20 10:15 Monocytes % 9.7 04/10/20 10:15 Eosinophils % 3.1 04/10/20 10:15 Basophils % 0.5 04/10/20 10:15 Absolute Neutrophils 2.68 k/cumm (1.2-6.7) 04/10/20 10:15 Absolute Lymphocytes 0.97 k/cumm (1.2-3.4) L 04/10/20 10:15 Absolute Monocytes 0.41 k/cumm (0.11-0.7) 04/10/20 10:15 Absolute Eosinophils 0.13 k/cumm (0.0-0.7) 04/10/20 10:15 Absolute Basophils 0.02 k/cumm (0.0-0.2) 04/10/20 10:15 APTT 24.0 sec (21.0-31.4) 04/12/20 10:06 D-Dimer 369 ng/mlFEU (<500) 04/10/20 10:15 Sodium 139 mmol/L (136-145) 04/10/20 10:15 Potassium 3.8 mmol/L (3.5-5.1) 04/10/20 10:15 Chloride 104 mmol/L (98-107) 04/10/20 10:15 Carbon Dioxide 28.5 mmol/L (21.0-32.0) 04/10/20 10:15 Anion Gap 6.5 mmol/L (3-11) 04/10/20 10:15 BUN 17 mg/dL (7-18) 04/10/20 10:15 Creatinine 0.84 mg/dL (0.70-1.30) 04/10/20 10:15 Estimated GFR/1.73 m2 >= 60.00 (mL/min/1.73m2) 04/10/20 10:15 Glucose 133 mg/dL (74-106) H 04/10/20 10:15 Lactate 0.6 mmol/L (0.6-1.4) 04/10/20 13:10 Calcium 9.0 mg/dL (8.5-10.1) 04/10/20 10:15 Magnesium 2.1 mg/dL (1.8-2.4) 04/12/20 06:18 Total Bilirubin 0.3 mg/dL (0.2-1.0) 04/10/20 10:15 AST 16 U/L (15-37) 04/10/20 10:15 ALT 33 U/L (16-63) 04/10/20 10:15 Alkaline Phosphatase 72 U/L (46-116) 04/10/20 10:15 Troponin I < 0.05 ng/mL (<0.06) 04/10/20 18:05 NT-Pro-B Natriuret Pep 172 pg/mL (<300) 04/10/20 18:05 Total Protein 7.8 g/dL (6.4-8.2) 04/10/20 10:15 Albumin 4.0 g/dL (3.4-5.0) 04/10/20 10:15 Triglycerides 74 mg/dL (<150) 04/12/20 06:18 Total Cholesterol 167 mg/dL (<200) 04/12/20 06:18 LDL Cholesterol, Calc 92 mg/dL (<100) 04/12/20 06:18 HDL Cholesterol 61 mg/dL (40-60) 04/12/20 06:18 Vitamin B12 339 pg/mL (193-986) 04/10/20 10:15 TSH 1.00 uIU/mL (0.36-3.74) 04/10/20 10:15 Urine Color Yellow (Yellow) 04/10/20 10:00 Urine Clarity Clear (Clear) 04/10/20 10:00 Urine pH 7.0 (5-8) 04/10/20 10:00 Ur Specific [place] 1.020 (1.005-1.025) 04/10/20 10:00 Urine Protein Negative mg/dL (Negative) 04/10/20 10:00 Urine Ketones Negative mg/dL (Negative) 04/10/20 10:00 Urine Blood Negative (Negative) 04/10/20 10:00 Urine Nitrite Negative (Negative) 04/10/20 10:00 Urine Bilirubin Negative (Negative) 04/10/20 10:00 Urine Urobilinogen 0.2 EU/dL (Up TO 0.2) 04/10/20 10:00 Ur Leukocyte Esterase Negative (Negative) 04/10/20 10:00 Urine Glucose Negative mg/dL (Negative) 04/10/20 10:00 Lyme Disease Antibody Negative (Negative) 04/10/20 10:15 COVID-19 PCR Negative (Negative) 04/10/20 13:15 Nasopharyn COVID-19 PCR Not Applicable 04/10/20 13:15 Ref Test Perform Site [facility] lab 04/10/20 13:15 EKG after his episode of chest pain, with no symptoms, sinus bradycardia with PAC, no acute ischemic ST-T changes.
[2020-04-12 15:30] VITALS: BP 109/68; PULSE 58; RESP 18; TEMP 36.2; O2SAT 96
--- NOTE | 2020-04-12 15:51 | W.NUTRFU ---
Date of service: 04/12/20 Time of Service: 15:52 Nutritional Follow up NOTE: 74 year old male admitted with chest pain. PMH:HTN, parkinson's dx. BMi wnl for age. Following regular meal plan with adequate intake. Not at nutritional risk at this time. will follow prn. Time Spent in Nutritional Counseling and Treatment: 0
[2020-04-12] MEDS: Pramipexole 0.25 MG TAB 0.5 MG PO ×2 (17:05→21:44)
[2020-04-12 17:19] LABS: PTT Activated 47.4 sec (21.0-31.4)
[2020-04-12 19:30] VITALS: BP 141/81; PULSE 57; RESP 19; TEMP 35.6; O2SAT 98
[2020-04-12] MEDS: Atorvastatin 40 MG TAB PO (20:14)
[2020-04-12 22:57] LABS: Anaplasma phagocytophilum Negative (Negative); B. miyamotoi PCR Negative (Negative); Babesia divergens/MO-1 Negative (Negative); Babesia duncani Negative (Negative); Babesia microti Negative (Negative); Ehrlichia chaffeensis Negative (Negative); Ehrlichia ewingii/canis Negative (Negative); Ehrlichia muris eauclairensis Negative (Negative)
[2020-04-13 00:22] VITALS: BP 135/84; PULSE 47; RESP 18; TEMP 36.4; O2SAT 97
[2020-04-13 03:42] VITALS: BP 161/77; PULSE 57; RESP 18; TEMP 36.2; O2SAT 99
[2020-04-13 05:47] LABS: HCT 44.8 % (40.0-50.0); Mean Corp. HGB Concentration 33.5 g/dL (32.0-36.0); Mean Corpuscular Hemoglobin 29.7 pg (27.0-33.0); Mean Corpuscular Volume 88.7 fL (80-95); Mean Platelet Volume 9.6 fL (8.0-11.0); Platelet Count 177 x1000/uL (130-400); RBC 5.05 m/cumm (4.50-6.00); RBC Distribution Width 13.6 % (11.8-14.1); White Blood Cell Count 5.02 k/cumm (4.4-10.8)
[2020-04-13 07:20] VITALS: BP 135/66; PULSE 52; RESP 17; TEMP 36.6; O2SAT 98
[2020-04-13] MEDS: Aspirin E.C. 81 MG TABEC PO (08:59)
[2020-04-13] MEDS: Pramipexole 0.25 MG TAB PO (09:00)
--- NOTE | 2020-04-13 10:12 | CCONE_ITS ---
Date of service: 04/13/20 Time of Service: 10:14 Assessment and Plan Assessment and plan (1) Coronary artery disease: Status: Acute Assessment and plan: The patient has symptoms of typical exertional angina and evidence of lateral wall ischemia on myocardial perfusion imaging. He is scheduled to transfer to [facility] later today for diagnostic cardiac catheterization This will be useful particularly in view of the fact that the patient did not tolerate beta-nicolás due to bradycardia (2) Hyperlipidemia: Status: Chronic Assessment and plan: Goal LDL should be less than 70 History of Present Illness History of Present Illness Chief Complaint: Exertional chest discomfort Narrative: This is a 74-year-old man who presented to the hospital several days ago because of worsening exertional chest discomfort. He is very active and has been running for many years. Over the last 2 weeks his ability to exercise has decreased and he described exertional chest discomfort which felt like he was breathing cold air. His symptoms were relieved with rest. He was brought to the hospital by family and friends where myocardial infarction was excluded. He underwent exercise treadmill testing with myocardial perfusion imaging. He demonstrated quite good exercise tolerance of 10.38 METs. He only achieved 76% of predicted heart rate for age and he was administered Lexiscan. Electrocardiographically the test was consistent with myocardial ischemia with 1.[address] depression noted in leads V3 through V6 at peak exercise. There was evidence of mild lateral wall ischemia on nuclear scanning The patient was initiated on medical therapy but did not tolerate beta-nicolás due to excessive bradycardia. He has been heparinized. He has had no chest pain at rest in the hospital and is awaiting transfer to [facility] Review of Systems All systems reviewed & are unremarkable except as noted in HPI and below [facility] Medical History Anxiety (Chronic 01/25/13) 12/26/17 TERESITA-7 SCORE=13 Balance disorder (Chronic 02/10/18) BPH without urinary obstruction (Chronic 04/12/09) Dupuytren's disease (Chronic 07/28/15) Hyperlipidemia (Chronic 01/08/00) Low back pain, non-specific (Chronic) S/P BACK SURGERY 1997 Male erectile disorder (Chronic) Metatarsalgia of left foot (Chronic 07/28/15) Panic attack (Chronic 01/25/13) Partial rupture of Achilles tendon (Chronic 07/15/17) Pterygium (Chronic 04/12/09) REMOVED W/ BILATERAL EYE SURGERY Restless legs (Chronic 04/12/09) Sensorineural hearing loss, bilateral (Chronic 12/14/15) Sleep disturbance (Chronic 03/12/18) Trigger finger, left middle finger (Chronic 07/28/15) Family History Mother No problems noted. Father Heart disease CHF Brother Hyperlipidemia Grandfather Heart disease Grandfather Heart disease Grandmother No problems noted. Grandmother Heart disease Sister Personal history of malignant neoplasm Parkinson disease Sister Personal history of malignant neoplasm BLADDER Sister Personal history of malignant neoplasm BLADDER Sister No problems noted. Sister No problems noted. Brother No problems noted. Brother No problems noted. Brother No problems noted. Brother Hyperlipidemia Social History Smoking/Tobacco Use Status: Never Alcohol Intake: current Alcohol Intake frequency: 3 or more drinks per day Alcohol type: beer Drug use: Never Substance use type: does not use Do you feel safe at home: Yes Do you feel safe in your relationship?: Yes Exam Narrative Exam Narrative: Well-developed well-nourished, looks younger than stated age, fit appearing Eyes Pupils: PERRL EOM: EOM intact bilaterally Resp Auscultation: clear to auscultation bilaterally Cardio Other: No neck vein distention carotid pulsations are normal in upstroke and volume there are no bruits heart is regular no murmur gallop Extrem Other: No peripheral edema Psych Other: Patient is awake alert oriented, normal affect and judgment Results Last Vital Signs Temp 36.6 C 04/13/20 07:20 Pulse 52 L 04/13/20 07:20 Resp 17 04/13/20 07:20 BP 135/66 04/13/20 07:20 Pulse Ox 98 04/13/20 07:20 Labs Result diagrams: 04/13/20 05:30 04/10/20 10:15 Labs: Laboratory Results - last 24 hr 04/10/20 04/12/20 04/12/20 10:15 10:06 16:30 WBC RBC Hgb Hct MCV MCH MCHC RDW Plt Count MPV APTT 24.0 47.4 H D A.phagocytophil DNA PCR Negative B. divergens/MO-1 PCR Negative Babesia duncani (PCR) Negative Babesia microti DNA PCR Negative Borrelia (PCR) Negative E.chaffeensis DNA (PCR) Negative E.ewingii/canis DNA PCR Negative E. muris-like DNA (PCR) Negative 04/13/20 04/13/20 05:30 05:30 WBC 5.02 RBC 5.05 Hgb 15.0 Hct 44.8 MCV 88.7 MCH 29.7 MCHC 33.5 RDW 13.6 Plt Count 177 MPV 9.6 APTT 46.0 H A.phagocytophil DNA PCR B. divergens/MO-1 PCR Babesia duncani (PCR) Babesia microti DNA PCR Borrelia (PCR) E.chaffeensis DNA (PCR) E.ewingii/canis DNA PCR E. muris-like DNA (PCR)
[2020-04-13 11:09] VITALS: BP 117/67; PULSE 57; RESP 17; TEMP 36.7; O2SAT 96
--- NOTE | 2020-04-13 12:54 | W.PM.DS.N ---
Date of service: 04/13/20 Time of Service: 12:54 DS: Diagnosis Discharge Diagnosis (1) Coronary artery disease: Status: Acute Asessment and Plan: New diagnosis based on recent MPI stress test but has had exertionally related chest discomfort and dyspnea for several weeks before presentation. No acute coronary syndrome by biomarkers. No regional wall motion abnormalities on echocardiogram with normal LVEF estimated at 60%. Started on aspirin, heparin and statin. Baseline bradycardia obviating use of beta-blockers. No problems with hypotension. Mild brief orthostasis attributed to his parkinsonism and or medication used for same. Due to his lifestyle, MPI stress test showing ischemia in the LAD distribution and difficulties to manage medically, being referred for coronary angiography. (2) Hyperlipidemia: Status: Chronic Asessment and Plan: Historically not on any statin, started this admission with the positive stress test. Pretreatment LDL level 92. (3) Parkinsonism: Status: Chronic Asessment and Plan: Does not have a formal diagnosis of Parkinson's disease but does have some features with bradykinesia, mild orthostasis, mild impairment of balance. Pramipexole dose increased during this hospitalization upon recommendations from neurology at [facility] as noted below. (4) Restless legs: Status: Chronic Asessment and Plan: Part of his presenting complaints were weakness, perhaps worsening restless leg symptoms. Pramipexole dose doubled from 0.12 5 in the morning to point to 5 mg in the morning and from 0.25 afternoon and evening 2.5 mg afternoon and evening. Subjectively better on the higher dose with no worsening of his mild orthostatic symptoms, change in sleep pattern or other identified side effects. (5) Bradycardia: Status: Acute Asessment and Plan: Sinus bradycardia (question athlete hear t?) at rest and when asleep as low as the 40s. He is asymptomatic during the daytime. Low-dose carvedilol exacerbated the bradycardia and was discontinued. 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 Patient tells me that he is usually very physically active often running up and down his hill for 75 yards and doing a set of 10 sit ups and push-ups when he gets about a hill and then doing the same when he gets to the top of the hill and will do up to 10 repetitions at a time. He says he usually runs 4 to 5 miles daily and cross-country skis in the winter and bicycles between 10 to 30 miles in the summer. However for last 2 weeks he has had fatigue and lightheadedness along with exertional dyspnea and chest tightness in the substernal area without radiation. He also says he has had generalized weakness and fatigue. He denies any tremors and denies any loss of consciousness or headaches or paresthesias or paraparesis. He admits to having insomnia but this is been a chronic issue for him. He has trouble remaining asleep and usually gets to 3 hours asleep at a time. Over the last couple weeks he has noticed that he gets a substernal chest tightness that gets worse with activity and better at rest. This is associated with exertional dyspnea. Yesterday was only able to run a half a mile but got symptoms and shorten his run. He reports that last night he was feeling really dizzy and his was concerned that he might fall down because he does get up during the night and so she moved him downstairs for the night. At his neighbor's urging his brought him to the emergency department for evaluation. In the ER he had routine labs including a CMP CBC and troponin levels as well as a blood lactate level. CMP was unremarkable except for glucose of 133 which was nonfasting. Lactate was normal at 0.6. Troponin I level was less than 0.05?2 sets. CBC demonstrated a slightly decreased total leukocyte count of 4220 with no anemia and no thrombocytopenia. Lymphocytes were slightly decreased to 0.97. COVID-19 PCR was obtained in the emergency department as part of routine screening. Urinalysis was unremarkable. Imaging included a chest x-ray and CT scan of the head without contrast. Chest x-ray was read as normal. CT scan showed no acute intracranial process. He has mild generalized cerebral atrophy and minimal patchy areas of decreased attenuation in the periventricular white matter consistent with microvascular ischemic change. 2 EKGs were performed in the emergency department the first 1 taken at 928 this morning showed sinus bradycardia rate of 52 bpm with a nonspecific RSR prime pattern in the anterior leads. No ischemic ST or T wave changes were noted and no AV block was noted. Repeat ECG performed at 1314 again showed sinus bradycardia rate of 51 bpm with no new changes. Evaluated by neurology in person and recommendations from his neurologist at [facility] were to double his pramipexole dose which did improve his restless leg symptoms. MPI stress test was performed with results noted below. He was then started on aspirin, statin and briefly on carvedilol which was discontinued because of worsening bradycardia. Conversation with [facility] cardiology and given his difficulties with medical management, his former very active lifestyle, recommendations were made for angiography. He had a very brief episode of chest pain at rest with no ECG changes. He was started on IV heparin pending transfer and angiography. He has had no chest pain in the past 24 hours. Hemodynamically remains stable with asymptomatic mild bradycardia. Home Meds and New Rx's Prescriptions: New atorvastatin [Lipitor] 40 mg Tablet 40 mg PO QPM Qty: 30 RF: 0 acetaminophen [Tylenol] 325 mg Tablet 325 - 650 mg PO Q4H PRN PRNQty: 1 RF: 0 aspirin 81 mg Tablet,Delayed Release (Dr/Ec) 81 mg PO DAILY Qty: 90 RF: 0 pramipexole 0.25 mg Tablet 0.25 mg PO DAILY Qty: 1 RF: 0 pramipexole 0.25 mg Tablet 0.5 mg PO BID@1700,2200 Qty: 1 RF: 0 heparin (porcine) in 5 % dex 25,000 unit/250 mL(100 unit/mL) Parenteral Solution 25,000 units IV INFUSION Qty: 1 RF: 0 Discontinued Shingrix Adjuvant Component-PF suspension 1 ml IM ONCE Qty: 0.5 RF: 1 lorazepam 1 mg tablet 1 mg PO DAILY PRN (Reason: clautrophobia) Qty: 2 RF: 0 pramipexole 0.125 mg tablet See Rx Instructions PO as directed Qty: 630 RF: 5 cyclobenzaprine 10 mg tablet 10 mg PO TID PRN (Reason: muscle spasm) Qty: 30 RF: 0 Discharge Instructions Instructions: Coronary Artery Disease ([place]) Referrals: Lynda Ventura MD, [place] [Primary Care Provider] - (Call to schedule follow-up appointment in about 2 weeks) Activity:: Activity as Tolerated Diet:: As Tolerated Discharge Orders Discharge Orders: Discharge Order (Routine); Ordered 04/13/20 Ordered By: Reilly Whatley DS: Summary Status at Discharge Functional status at discharge: independent ambulation Overall status at discharge: patient is progressing back to baseline Mental Status: mental status grossly normal Speech and Movement: speech and movement normal Mood: congruent mood Affect: normal affect Time Spent with Patient providing and/or coordinating discharge services: Greater than 30 minutes Exam Narrative Exam Narrative: Disgruntled over the delay in his transfer but otherwise in no acute distress. Temperature 36.7 blood pressure 117/67 pulse rate 57 sinus bradycardia on telemetry. SaO2 96% on room air. Neck veins are flat. Lungs good aeration throughout no wheeze or crackles. Slow regular heart rhythm with no S3-S4 or murmur. No rest tremor. He stands promptly with a narrow gait, turns without loss of balance. Alert and oriented x4. Reduced facial movement. Psych Mental Status: mental status grossly normal Speech and Movement: speech and movement normal Mood: congruent mood Affect: normal affect DS: Data Vitals/I&O Vitals and I&O: Vital Signs Temperature 36.7 C 04/13/20 11:09 Temperature Source Tympanic 04/13/20 11:09 Pulse 57 L 04/13/20 11:09 Pulse Rhythm Regular 04/13/20 03:00 Pulse 46 L 04/10/20 12:00 Respiratory Rate 17 04/13/20 11:09 Respiratory Effort Non-Labored 04/13/20 03:00 Respiratory Depth Normal 04/13/20 03:00 Respiratory Pattern Normal 04/13/20 03:00 Blood Pressure 117/67 04/13/20 11:09 Blood Pressure Position Sitting 04/10/20 09:13 Pulse Oximetry 96 04/13/20 11:09 Oxygen Delivery Method Room Air 04/13/20 11:09 Oxygen Flow Rate 0 04/13/20 11:09 Pain Level 0 04/13/20 11:09 Comment 04/11/20 09:11 Intake & Output 04/12/20 04/13/20 04/13/20 23:59 11:59 23:59 Intake Total 800 / 1040 458.833 / 458.833 Output Total 350 / 350 700 / 700 Balance 450 / 690 -241.167 / -241.167 Weight 81.5 kg Intake: IV 218.833 / 218.833 Oral 780 / 1020 240 / 240 Output: Urine 350 / 350 700 / 700 Other: Urine Color Yellow Yellow Urine Appearance Clear Clear Urine Odor None Normal Voiding Methods Urinal Toilet Data Completed and Pending Labs on day of discharge: Labs from last 24 hours 04/13/20 04/13/20 04/12/20 05:30 05:30 16:30 WBC 5.02 RBC 5.05 Hgb 15.0 Hct 44.8 MCV 88.7 MCH 29.7 MCHC 33.5 RDW 13.6 Plt Count 177 MPV 9.6 APTT 46.0 H 47.4 H D A.phagocytophil DNA PCR B. divergens/MO-1 PCR Babesia duncani (PCR) Babesia microti DNA PCR Borrelia (PCR) E.chaffeensis DNA (PCR) E.ewingii/canis DNA PCR E. muris-like DNA (PCR) 04/10/20 10:15 WBC RBC Hgb Hct MCV MCH MCHC RDW Plt Count MPV APTT A.phagocytophil DNA PCR Negative B. divergens/MO-1 PCR Negative Babesia duncani (PCR) Negative Babesia microti DNA PCR Negative Borrelia (PCR) Negative E.chaffeensis DNA (PCR) Negative E.ewingii/canis DNA PCR Negative E. muris-like DNA (PCR) Negative Troponin all below level of detection.. Total cholesterol 167, LDL 92, HDL 61, triglycerides 74. Stress ECG Conclusion 1. Patient exercised on the Jeremias protocol to a workload of 10.38 METS. He achieved 76% of predicted heart rate for age and was then treated with regadenoson 2. Normal heart rate and blood pressure response to exercise 3. Electrocardiographically consistent with myocardial ischemia, 1.[address] depression noted leads V3 through V6 at peak exercise 4. There were no significant dysrhythmias 5. Schwartz treadmill score is -1, moderate risk Stress Test Summary STAGE Time (mins) Speed (mph) Grade (%) HR BP SYMPTOMS METS Supine 61 178/80 Standing 64 160/80 1 3 1.7 10 87 4.6 2 6 2.5 12 98 7 3 9 3.4 14 111 170/80 10.2 1 min post Lexiscan injection 95 190/60 3 min post Lexiscan injection 86 170/80 6 min post Lexiscan injection 77 130/60 9 min post Lexiscan injection 76 120/70 MPI Conclusion Myocardial perfusion is consistent with mild ischemia of the lateral wall Ejection fraction is 62% [facility] Medical History (Updated 04/13/20 @ 12:55 by Reilly Whatley MD) Anxiety (Chronic 01/25/13) 12/26/17 TERESITA-7 SCORE=13 Balance disorder (Chronic 02/10/18) BPH without urinary obstruction (Chronic 04/12/09) Bradycardia (Acute) Dupuytren's disease (Chronic 07/28/15) Hyperlipidemia (Chronic 01/08/00) Low back pain, non-specific (Chronic) S/P BACK SURGERY 1997 Male erectile disorder (Chronic) Metatarsalgia of left foot (Chronic 07/28/15) Panic attack (Chronic 01/25/13) Partial rupture of Achilles tendon (Chronic 07/15/17) Pterygium (Chronic 04/12/09) REMOVED W/ BILATERAL EYE SURGERY Restless legs (Chronic 04/12/09) Sensorineural hearing loss, bilateral (Chronic 12/14/15) Sleep disturbance (Chronic 03/12/18) Trigger finger, left middle finger (Chronic 07/28/15) Family History Mother No problems noted. Father Heart disease CHF Brother Hyperlipidemia Grandfather Heart disease Grandfather Heart disease Grandmother No problems noted. Grandmother Heart disease Sister Personal history of malignant neoplasm Parkinson disease Sister Personal history of malignant neoplasm BLADDER Sister Personal history of malignant neoplasm BLADDER Sister No problems noted. Sister No problems noted. Brother No problems noted. Brother No problems noted. Brother No problems noted. Brother Hyperlipidemia Social History Smoking/Tobacco Use Status: Never Alcohol Intake: current Alcohol Intake frequency: 3 or more drinks per day Alcohol type: beer Drug use: Never Substance use type: does not use Do you feel safe at home: Yes Do you feel safe in your relationship?: Yes
--- NOTE | 2020-04-13 13:40 | CMDISCH_ITS ---
- If Service Date Differs Date of service: 04/13/20 Time of Service: 13:40 LACE Index Scoring Tool - Questions: Length of Stay (in days): 3 Acuity (Admit via E.D.?): Yes E.D. Visits: 1 - Answers: Total Score: 7 Risk of Readmission: Low Risk Care Management Discharge Reason for Hospitalization: Generilized weakness, chest pain Discharge Plan: Nitin is being transfered to [facility] at 1430 today. Patient/Family Education Needs: Transfer education
--- NOTE | 2020-04-13 15:02 | CHAPLAIN ---
Nitin said that he's been informed that he'll be transferred to [facility]. He's waiting to hear details about that. He shared some personal history during our conversation and talked about state and national politics. He said this experience dealing with health issues has been interesting and he expects to learn something from it.
[2020-04-13 15:05] VITALS: PULSE 67
== END 2020-04-13 15:08 | disposition short-term general hospital (02) | DRG 303 ==
LOC: ER 12:47 → MS 16:18
PROVIDERS: General Practice; Admitting Provider Internal Medicine; Emergency Provider Student in an Organized Health Care Education/Training Program; PCP Family Medicine; Visit Provider Internal Medicine
DX: I25.10 Atherosclerotic heart disease of native coronary artery without angina pectoris (principal); E78.5 Hyperlipidemia, unspecified; G20 Parkinson's disease; G25.81 Restless legs syndrome; R00.1 Bradycardia, unspecified; G25.3 Myoclonus; R53.1 Weakness; I10 Essential (primary) hypertension; N40.0 Benign prostatic hyperplasia without lower urinary tract symptoms; F41.9 Anxiety disorder, unspecified; Z03.818 Encounter for observation for suspected exposure to other biological agents ruled out
CPT/HCPCS: 36415; 78452; 80053; 80061; 85027; 87798; 93005; 93306; 97161; 97165; 99215; 99223; 99225; 99226; 99232; 99239; 99252; 99285; J1650; U0003; 70450; 71046; 81003; 82607; 83605; 83735; 83880; 84443; 84484; 85025; 85379; 85730; 86618; 93010; 93017; 99220; 99284; G0378; J2785

== ENCOUNTER → 2020-04-13 08:16 | Outpatient (BNVA) | payer MEDICARE, BC, SELFPAY | PROVIDERS: PCP Family Medicine; Referring Provider Family Medicine; Visit Provider Internal Medicine Cardiovascular Disease | DX: R69 Illness, unspecified (principal) ==

== ENCOUNTER → 2020-04-28 12:49 | Outpatient (BNVA) | payer MEDICARE, BC, SELFPAY | PROVIDERS: PCP Family Medicine; Referring Provider Family Medicine; Visit Provider Internal Medicine Cardiovascular Disease | DX: I25.10 Atherosclerotic heart disease of native coronary artery without angina pectoris (principal); Z95.5 Presence of coronary angioplasty implant and graft; G20 Parkinson's disease | CPT/HCPCS: 99204; 99215 ==

== ENCOUNTER 2020-08-14 21:08 | Outpatient (REF) | payer MEDICARE, BC, SELFPAY ==
[2020-08-14 21:33] LABS: HCT 43.8 % (40.0-50.0); HGB 14.1 g/dL (13.5-17.5); MCH 29.1 pg (27.0-33.0); MCHC 32.2 % (32.0-36.0); MCV 90.5 fL (80-95); Platelet Count 218 10^3/uL (130-400); RBC 4.84 10^6/uL (4.36-5.78); RDW 12.9 % (11.8-14.1); RDW-SD 42.8 fL; WBC 5.94 10^3/uL (4.4-10.8)
[2020-08-14 21:52] LABS: ALT 16 U/L (16-63); AST 20 U/L (15-37); Albumin 3.7 g/dL (3.4-5.0); Alkaline Phosphatase 80 U/L (46-116); Anion Gap 6.6 mmol/L (3-11); BUN 16 mg/dL (7-18); Bilirubin, Total 0.7 mg/dL (0.2-1.0); CO2 28.4 mmol/L (21.0-32.0); CREATININE 0.85 mg/dL (0.70-1.30); Calcium 8.9 mg/dL (8.5-10.1); Calculated LDL 53 mg/dL (<100); Chloride 106 mmol/L (98-107); Cholesterol 149 mg/dL (<200); Glucose 154 mg/dL (74-106); HDL Cholesterol 81 mg/dL (40-60); Potassium 4.1 mmol/L (3.5-5.1); Sodium 141 mmol/L (136-145); Total Protein 6.8 g/dL (6.4-8.2); Triglyceride 79 mg/dL (<150)
[2020-08-14 22:03] LABS: Hemoglobin A1C 6.4 % (<5.7)
== END 2020-08-14 21:28 ==
LOC: LBN 21:08
PROVIDERS: PCP Family Medicine; Visit Provider Family Medicine
DX: E11.9 Type 2 diabetes mellitus without complications (principal); I25.10 Atherosclerotic heart disease of native coronary artery without angina pectoris; Z95.5 Presence of coronary angioplasty implant and graft
CPT/HCPCS: 80053; 80061; 85027; 83036

== ENCOUNTER 2020-10-02 03:20 | Outpatient (CLI) | payer MEDICARE, BC, SELFPAY ==
[2020-10-03 19:12] LABS: Patient Race White; SARS-CoV-2 RNA Undetected (Undetected); SARS-CoV-2 Specimen Source Nasal
== END 2020-10-02 03:40 ==
PROVIDERS: PCP Family Medicine; Visit Provider Family Medicine
DX: Z11.59 Encounter for screening for other viral diseases (principal)
CPT/HCPCS: U0003

== ENCOUNTER → 2020-12-05 11:15 | Outpatient (BNVA) | payer MEDICARE, BC, SELFPAY | PROVIDERS: PCP Family Medicine; Referring Provider Family Medicine; Visit Provider Internal Medicine Cardiovascular Disease | DX: Z95.5 Presence of coronary angioplasty implant and graft (principal); I25.10 Atherosclerotic heart disease of native coronary artery without angina pectoris; R00.1 Bradycardia, unspecified | CPT/HCPCS: 99442; 99213 ==

== ENCOUNTER → 2021-06-05 10:26 | Outpatient (BNVA) | payer MEDICARE, BC, SELFPAY | PROVIDERS: PCP Family Medicine; Referring Provider Family Medicine; Visit Provider Internal Medicine Cardiovascular Disease | DX: I25.10 Atherosclerotic heart disease of native coronary artery without angina pectoris (principal); Z95.5 Presence of coronary angioplasty implant and graft | CPT/HCPCS: 99214; 99442 ==

== ENCOUNTER 2021-10-30 20:17 | Outpatient (REF) | payer MEDICARE, BC, SELFPAY | END 2021-10-30 20:18 | disposition home or self-care (01) | LOC: LBN 20:17 | PROVIDERS: Visit Provider Emergency Medicine | DX: L08.89 Other specified local infections of the skin and subcutaneous tissue (principal); L02.512 Cutaneous abscess of left hand | CPT/HCPCS: 87077; 87070; 87186; 87205 ==